=== PATIENT | female | born 1940 | race African-American/Black ===

== ENCOUNTER 2017-08-31 00:53 | Inpatient (IN) | payer MEDICARE, BC ==
[~2017-08-31] VITALS: Ht 175.3 cm; Wt 81.6 kg
[2017-08-31 04:00] VITALS: BP 136/60
[2017-08-31] MEDS ORDERED: CYMBALTA30 MG ORAL (05:23)
[2017-08-31] MEDS ORDERED: QUESTRAN POWDE378 GM ORAL (05:23)
[2017-08-31 05:48] VITALS: BP 136/60
[2017-08-31] MEDS ORDERED: Milk of Magnesia 30ml Ud ORAL PRN ×2 (07:15→09:00)
[2017-08-31] MEDS ORDERED: Miralax 17gm pkt ORAL PRN (07:15)
[2017-08-31] MEDS ORDERED: Acetaminophen 650 MG SUPP RECTAL PRN (07:15)
[2017-08-31 08:00] VITALS: BP 130/53
[2017-08-31] MEDS: Cholestyramine 4gm Pkt ORAL SCH ×3 (09:30→18:16)
[2017-08-31] MEDS: Docusate 100mg cap ORAL SCH ×2 (09:30→20:38)
[2017-08-31] MEDS ORDERED: Norco 5mg/325mg tab ORAL PRN (11:00)
[2017-08-31] MEDS ORDERED: Lactulose 20gm/30ml UDC ORAL ONE (11:30)
[2017-08-31] MEDS: Aspirin Baby 81mg ORAL SCH (11:31)
[2017-08-31] MEDS: DULoxetine 30mg cap ORAL SCH (11:31)
[2017-08-31] MEDS: Heparin 5000 units/ml inj SUBQ SCH ×2 (11:32→20:38)
--- NOTE | 2017-08-31 11:48 | Consultation ---
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 q month at [facility] Patient denied chest pain, SOB, no n/v/diarrhea/ no abdominal pain CT head in [facility] was negative for any acute IC pathology troponin was negative ECG revealed no acute ischemic chnages BP stable X ray B knee no evidence for acute bony trauma ammonia slightly elevated -51 anemic with HH-10.2/31.4 patietn was subsequently transferred to [facility] for insurance purposes Allergies: Coded Allergies: CEFAZOLIN (Verified Allergy, Intermediate, Hives, 08/31/17) CEPHALEXIN (Verified Allergy, Intermediate, Hives, 08/31/17) CEPHRADINE (Verified Allergy, Intermediate, Hives, 08/31/17) CHLOROPHYLLIN (Verified Allergy, Intermediate, Hives, 08/31/17) Medication History Scheduled Cholestyramine (With Sugar) (Questran Powder), 4 GM ORAL THREE TIMES A DAY, ( Reported) Duloxetine Hcl* (Cymbalta*), 30 MG ORAL DAILY, (Reported) Patient History History Provided By: Patient, Family Member Healthcare decision maker Resuscitation status Full Code Advanced Directive on File No Past Medical/Surgical History Past Medical/Surgical History: (1) Depression (2) Osteoarthritis (3) Carcinomatosis Review of Systems Constitutional: Reports: weakness Eye: Reports: no symptoms ENT: Reports: no symptoms Respiratory: Reports: no symptoms Cardiovascular: Reports: no symptoms Gastrointestinal: Reports: no symptoms, other - carcinomatosis, on hemo at [facility] Q MONTH Genitourinary: Reports: no symptoms Musculoskeletal: Reports: see HPI, joint pain, other - OA Skin: Reports: dryness Psychiatric: Reports: no symptoms Neurological: Reports: no symptoms Endocrine: Reports: no symptoms Hematologic/Lymphatic: Reports: no symptoms Physical Exam General Appearance: no apparent distress, alert - awake, responsive AA female Lines, tubes and drains: peripheral HEENT: normocephalic, atraumatic, anicteric, mucous membranes moist Neck: non-tender, supple, normal inspection Respiratory/Chest: chest wall non-tender, lungs clear, no respiratory distress , no accessory muscle use Cardiovascular/Chest: normal peripheral pulses, normal rate, regular rhythm - SR on tele, no JVD Abdomen: normal bowel sounds, non tender, soft Extremities: normal range of motion Skin Exam: normal pigmentation, warm/dry Neurologic: alert, responsive Last 24 Hour Vital Signs Date Time Temp Pulse Resp B/P (MAP) Pulse Ox O2 Delivery O2 Flow Rate FiO2 08/31/17 08:00 98.4 61 19 130/53 98 Room Air 08/31/17 05:48 98.4 67 18 136/60 100 Room Air 08/31/17 04:20 69 08/31/17 04:00 98.4 67 18 136/60 100 Room Air Intake and Output 08/30/17 08/31/17 19:00 07:00 Output Total 200 ml Balance -200 ml Output Urine Total 200 ml Height (Feet): 5 Height (Inches): 9.00 Weight (Pounds): 180 Medications Current Medications Medications (Trade) Dose Ordered Sig/Ginger Route PRN Reason Start Time Stop Time Status Last Admin Dose Admin Acetaminophen (Tylenol) 650 mg Q4H PRN ORAL Mild Pain (Pain 1-3)/FEVER 08/31/17 07:15 09/30/17 07:14 Acetaminophen (Tylenol) 650 mg Q4H PRN RECTAL Mild Pain (Pain Scale 1-3) 08/31/17 07:15 09/30/17 07:14 Acetaminophen/ Hydrocodone Bitart ([place] 5/325) 1 tab Q6H PRN ORAL Moderate Pain (Pain Scale 4-6) 08/31/17 11:00 09/07/17 10:59 Aspirin (ASA) 81 mg DAILY ORAL 08/31/17 09:30 09/30/17 09:29 08/31/17 11:31 Cholestyramine Resin (Questran) 4 gm THREE TIMES A DAY ORAL 08/31/17 09:30 09/30/17 09:29 Dextrose (Dextrose 50%) STAT PRN IV Hypoglycemia 08/31/17 07:15 09/30/17 07:14 Dextrose/ Electrolytes 1,000 ml @ 75 mls/hr [id number] IV 08/31/17 10:00 09/30/17 09:59 Docusate Sodium (Colace) 100 mg EVERY 12 HOURS ORAL 08/31/17 09:30 09/30/17 09:29 Duloxetine HCl (Cymbalta) 30 mg DAILY ORAL 08/31/17 09:30 09/30/17 09:29 08/31/17 11:31 Heparin Sodium (Porcine) (Heparin 5000 units/ml) 5,000 units EVERY 12 HOURS SUBQ 08/31/17 11:30 09/30/17 11:29 08/31/17 11:32 Magnesium Hydroxide (Mom) 30 ml HSPRN PRN ORAL Constipation 08/31/17 09:00 09/30/17 07:14 Ondansetron HCl (Zofran) 4 mg Q6H PRN IVP Nausea & Vomiting 08/31/17 07:15 09/30/17 07:14 Polyethylene Glycol (Miralax) 17 gm DAILYPRN PRN ORAL Constipation 08/31/17 07:15 09/30/17 07:14 Assessment/Plan Assessment/Plan ASSESSMENT s/p fall syncopal episode with transient loss of consciousness acute toxic metabolic encephalopathy -resolved 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
[2017-08-31] MEDS: D5 1/2NS w/KCl 20mEq 1,000 ML IV SCH ×2 (11:55→23:20)
[2017-08-31 12:00] VITALS: BP_SYST 121; BP_SYST 130; BP_DIAS 53; BP_DIAS 57
--- NOTE | 2017-08-31 13:31 | History & Physical ---
History and Physical History & Physicial Dictated for Int Med-Dr Rosen no. [id number]. MELODY MERCADO Aug 31, 2017 13:31
[2017-08-31 14:00] LABS: HEMATOCRIT 26.1 % (37.0-47.0); MEAN CORPUSCULAR VOLUME 98 FL (80-99); PLATELET COUNT 126 K/UL (150-450); RED BLOOD COUNT 2.67 M/UL (4.20-5.40); RED CELL DISTRIBUTION WIDTH 14.3 % (11.6-14.8); WHITE BLOOD COUNT 3.1 K/UL (4.8-10.8)
--- NOTE | 2017-08-31 14:16 | Cardiac Electrophysiology PN ---
Subjective Subjective [id number] Objective Last 24 Hour Vital Signs Date Time Temp Pulse Resp B/P (MAP) Pulse Ox O2 Delivery O2 Flow Rate FiO2 08/31/17 08:00 98.4 61 19 130/53 98 Room Air 08/31/17 08:00 74 08/31/17 05:48 98.4 67 18 136/60 100 Room Air 08/31/17 04:20 69 08/31/17 04:00 98.4 67 18 136/60 100 Room Air Intake and Output 08/30/17 08/31/17 19:00 07:00 Output Total 200 ml Balance -200 ml Output Urine Total 200 ml Laboratory Tests Test 08/31/17 13:20 White Blood Count 3.1 K/UL (4.8-10.8) L Red Blood Count 2.67 M/UL (4.20-5.40) L Hemoglobin 8.0 G/DL (12.0-16.0) L Hematocrit 26.1 % (37.0-47.0) L Mean Corpuscular Volume 98 FL (80-99) Mean Corpuscular Hemoglobin 29.9 PG (27.0-31.0) Mean Corpuscular Hemoglobin Concent 30.6 G/DL (32.0-36.0) L Red Cell Distribution Width 14.3 % (11.6-14.8) Platelet Count 126 K/UL (150-450) L Mean Platelet Volume 8.1 FL (6.5-10.1) Neutrophils (%) (Auto) % (45.0-75.0) Lymphocytes (%) (Auto) % (20.0-45.0) Monocytes (%) (Auto) % (1.0-10.0) Eosinophils (%) (Auto) % (0.0-3.0) Basophils (%) (Auto) % (0.0-2.0) Neutrophils % (Manual) Pending Lymphocytes % (Manual) Pending Platelet Estimate Pending Platelet Morphology Pending Prothrombin Time 10.9 SEC (9.30-11.50) Prothromb Time International Ratio 1.0 (0.9-1.1) Activated Partial Thromboplast Time 27 SEC (23-33) Sodium Level Pending Potassium Level Pending Chloride Level Pending Carbon Dioxide Level Pending Blood Urea Nitrogen Pending Creatinine Pending Estimat Glomerular Filtration Rate Pending Glucose Level Pending Calcium Level Pending Magnesium Level Pending Total Bilirubin Pending Aspartate Amino Transf (AST/SGOT) Pending Alanine Aminotransferase (ALT/SGPT) Pending Alkaline Phosphatase Pending Total Creatine Kinase Pending Creatine Kinase MB Pending Troponin I Pending Total Protein Pending Albumin Pending Globulin Pending Triglycerides Level Pending Cholesterol Level Pending LDL Cholesterol Pending HDL Cholesterol Pending Cholesterol/HDL Ratio Pending Thyroid Stimulating Hormone (TSH) Pending CRISTIN GIBBS Aug 31, 2017 14:16
[2017-08-31 14:30] LABS: ALANINE AMINOTRANSFERASE 32 U/L (12-78); ALBUMIN 3.1 G/DL (3.4-5.0); ALBUMIN/GLOBULIN RATIO 0.9 (1.0-2.7); ALKALINE PHOSPHATASE 51 U/L (46-116); ANION GAP 8 mmol/L (5-15); ASPARTATE AMINO TRANSFERASE 33 U/L (15-37); BILIRUBIN,TOTAL 0.7 MG/DL (0.2-1.0); BLOOD UREA NITROGEN 14 mg/dL (7-18); CALCIUM 7.6 MG/DL (8.5-10.1); CARBON DIOXIDE 27 MMOL/L (21-32); CHLORIDE 106 MMOL/L (98-107); CHOLESTEROL 142 MG/DL (< 200); CKMB 0.5 NG/ML (0.0-3.6); CREATINE KINASE 163 U/L (26-308); CREATININE 1.2 MG/DL (0.55-1.30); HDL CHOLESTEROL 74 MG/DL (40-60); POTASSIUM 3.6 MMOL/L (3.5-5.1); SODIUM 141 MMOL/L (136-145); TRIGLYCERIDES 65 MG/DL (30-150)
[2017-08-31 16:00] VITALS: BP 121/57
[2017-08-31] MEDS: Magnesium Oxide 400mg tab ORAL SCH (18:16)
[2017-08-31 20:00] VITALS: BP 127/58
[2017-08-31 20:14] LABS: APPEARANCE,URINE CLEAR; BILIRUBIN, URINE NEGATIVE (NEGATIVE); COLOR,URINE PALE YELLOW; GLUCOSE, URINE (UA) NEGATIVE (NEGATIVE); KETONES,URINE NEGATIVE (NEGATIVE); LEUKOCYTE ESTERASE ,URINE 1+ (NEGATIVE); NITRITE,URINE NEGATIVE (NEGATIVE); PH,URINE 5 (4.5-8.0); PROTEIN,URINE NEGATIVE (NEGATIVE); UROBILINOGEN,URINE NORMAL MG/DL (0.0-1.0)
--- NOTE | 2017-08-31 20:45 | History and Physical Report ---
DATE OF ADMISSION: 08/31/2017 CHIEF COMPLAINT: The patient is a 76-year-old white female, presents with complaint of syncopal episode. HISTORY OF PRESENT ILLNESS: The patient herself is somewhat confused. Much of the History and Physical is obtained from the patient's daughter, who is at the bedside. The patient states she was in her usual state of health until yesterday, 08/30/2017. The patient apparently passed out twice. The patient lives with her son and grandson. The patient had loss of consciousness for approximately five minutes. The patient was initially transported to [facility] emergency room. The patient is transferred to [facility] for insurance purposes. The patient is admitted with chief complaint of syncopal episode and altered mental status. PAST MEDICAL HISTORY: Significant for hypertension. PAST SURGICAL HISTORY: Significant for: 1. Cholecystectomy. 2. Appendectomy. CURRENT MEDICATIONS: 1. Amlodipine of an unknown dose daily. 2. Cymbalta of an unknown dose daily. ALLERGIES: 1. Cefazolin. 2. Cephalexin. 3. Cephradine. 4. Chlorophyllin. SOCIAL HISTORY: The patient is a . The patient lives with her adult son and grandson. The patient denies tobacco use, having quit in her 20s. The patient admits to occasional alcohol use. REVIEW OF SYSTEMS: CONSTITUTIONAL: The patient denies weight loss or weight gain. The patient denies fevers or chills. HEENT: The patient denies ear or throat pain. The patient denies headache. CARDIOVASCULAR: The patient denies palpitations or chest pain. CHEST: The patient denies wheeze or shortness of breath. ABDOMINAL: The patient denies nausea, vomiting, diarrhea, or constipation. GENITOURINARY: The patient denies dysuria or increased frequency of urination. NEUROMUSCULAR: The patient complains of syncopal episode as above. The patient denies seizures or generalized weakness. PHYSICAL EXAMINATION: VITAL SIGNS: Temperature 98.4, respirations 18, pulse 67, blood pressure 136/60. GENERAL: The patient is a well-developed and well-nourished white female, in no apparent distress. HEENT: Eyes, pupils equal and responsive to light and accommodation. Extraocular movements are intact. NECK: Supple without lymphadenopathy. CHEST: Lungs are clear to auscultation bilaterally without wheezes or rales. CARDIOVASCULAR: Regular rate. S1 and S2 normal without murmurs, rubs, or gallops. ABDOMEN: Soft, nontender, nondistended. Positive bowel sounds. No evidence of hepatosplenomegaly. Currently, no rebound or guarding noted. EXTREMITIES: Negative for clubbing, cyanosis, or edema. RECTAL/GENITAL: Refused. NEUROLOGIC: Cranial nerves II to XII are grossly intact without focal deficits. Motor strength is 5/5 bilaterally. Deep tendon reflexes are 2+ plantar. LABORATORY STUDIES: From [place], WBC 3.4, hemoglobin 10.2, hematocrit 31.4, and platelets 145,000. Sodium 141, potassium 4.5, chloride 107, CO2 25, BUN 13, creatinine 0.92, and glucose 113. DIAGNOSTIC DATA: EKG demonstrated sinus bradycardia at approximately 42 beats per minute. Chest x-ray was reported as no acute disease. ASSESSMENT: This is a 76-year-old white female. 1. Altered mental status. 2. Syncopal episode. 3. Bradycardia. TREATMENT: 1. Altered mental status/syncopal episode. An MRI of the brain is pending. A Neurology consultation was obtained with Dr. Nugent. Carotid Duplex Dopplers are pending. We will follow recommendations under Neurology. 2. Bradycardia. Cardiology consultation has been obtained with Dr. Seven Cedeno. The patient is admitted to the telemetry unit. Abel Noguera M.D. DR: Sarah JOB#: [id number] CC:
[2017-09-01] VITALS: BP 133/54
--- NOTE | 2017-09-01 00:30 | Consultation ---
DATE OF CONSULTATION: 08/31/2017 CARDIOLOGY CONSULTATION CONSULTING PHYSICIAN: Seven Cedeno M.D. REFERRING PHYSICIAN: Kwabena Rosen M.D. REASON FOR CONSULTATION: Syncope and bradycardia. HISTORY OF PRESENT ILLNESS: The patient is a very pleasant 76-year-old lady with history of carcinoid syndrome, was taken to [facility] Emergency Room after she had a syncopal episode. The patient actually had 2 syncopal episodes. The patient has been followed up by director of corporate sponsorships at [facility] for bradycardia. Per paramedics, the patient was awake and oriented, but then had a second syncopal episode when paramedics picked her up. The patient was then transferred to [facility] as the patient was not a [place] member. PAST MEDICAL HISTORY: 1. Carcinoid tumor. 2. Depression. 3. Anxiety. 4. . 5. Arthritis of the knee. SOCIAL HISTORY: She lives at home. Does not smoke or drink alcohol. REVIEW OF SYSTEMS: Review of systems was negative other than what was mentioned in the history of present illness. PHYSICAL EXAMINATION: VITAL SIGNS: Blood pressure of 130/53, pulse 74, respirations 18, and she is afebrile. HEAD AND NECK: No JVD. LUNGS: Clear. CARDIOVASCULAR: Regular S1 and S2 with no gallop or murmur. ABDOMEN: Soft and nontender. EXTREMITIES: No pitting edema. LABORATORY AND DIAGNOSTIC DATA: Telemetry strip shows sinus rhythm with episodes of bradycardia, the lowest one was in the 40s. Labs, white count of 3.1, hemoglobin of 8, hematocrit 26.1, and platelet count of 126,000. The rest of her labs are pending. Her chemistry from [facility] showed BUN of 13, creatinine of 0.9, glucose of 113. Troponin was negative. Alcohol level was negative. ASSESSMENT AND PLAN: 1. Two episodes of syncope in a patient with history of bradycardia. We will watch the patient on telemetry. I will check her thyroid function test. The echocardiogram actually showed ejection fraction of 60% with mild left ventricular hypertrophy with mild diastolic dysfunction. 2. If we can confirm that the cause of syncopal episodes was bradycardia, she may need permanent pacemaker implantation. In the meantime, I will keep the patient off any sinus or AV [place] blocking agents. 3. History of carcinoid syndrome, status post chemotherapy. 4. Pancytopenia, likely secondary to chemotherapeutic agent. Thank you very much, Dr. Rosen, for allowing me to participate in the care of this patient. Please do not hesitate to contact me for any questions regarding my evaluation. Seven Cedeno M.D. DR: RADHA JOB#: [id number] CC:
[2017-09-01 04:00] VITALS: BP 121/58
[2017-09-01 08:00] VITALS: BP 110/49
[2017-09-01] MEDS: Cholestyramine 4gm Pkt ORAL SCH ×3 (08:35→18:13)
[2017-09-01] MEDS: DULoxetine 30mg cap ORAL SCH (08:36)
[2017-09-01] MEDS: Docusate 100mg cap ORAL SCH ×2 (08:38→20:53)
[2017-09-01] MEDS: Aspirin Baby 81mg ORAL SCH (08:38)
[2017-09-01] MEDS: Heparin 5000 units/ml inj SUBQ SCH ×2 (08:43→20:52)
[2017-09-01] MEDS: Magnesium Oxide 400mg tab ORAL SCH ×2 (08:43→18:13)
[2017-09-01 09:19] LABS: HEMATOCRIT 24.6 % (37.0-47.0); HEMOGLOBIN 7.6 G/DL (12.0-16.0); MEAN CORPUSCULAR VOLUME 98 FL (80-99); PLATELET COUNT 112 K/UL (150-450); RED BLOOD COUNT 2.52 M/UL (4.20-5.40); RED CELL DISTRIBUTION WIDTH 13.9 % (11.6-14.8)
[2017-09-01 09:35] LABS: WHITE BLOOD COUNT 1.9 K/UL (4.8-10.8)
[2017-09-01 09:48] LABS: ANION GAP 5 mmol/L (5-15); BLOOD UREA NITROGEN 8 mg/dL (7-18); CALCIUM 7.5 MG/DL (8.5-10.1); CARBON DIOXIDE 31 MMOL/L (21-32); CHLORIDE 108 MMOL/L (98-107); CREATININE 0.9 MG/DL (0.55-1.30); POTASSIUM 3.8 MMOL/L (3.5-5.1); SODIUM 144 MMOL/L (136-145)
--- NOTE | 2017-09-01 11:22 | Neurology Progress Note ---
Objective Physical Exam Last Vital Signs Date Time Temp Pulse Resp B/P (MAP) Pulse Ox O2 Delivery O2 Flow Rate FiO2 09/01/17 09:10 98 09/01/17 08:00 97.4 18 110/49 97 Room Air Laboratory Tests Test 08/31/17 13:20 08/31/17 19:00 09/01/17 07:07 09/01/17 07:15 White Blood Count 3.1 K/UL (4.8-10.8) L 1.9 K/UL (4.8-10.8) *L Red Blood Count 2.67 M/UL (4.20-5.40) L 2.52 M/UL (4.20-5.40) L Hemoglobin 8.0 G/DL (12.0-16.0) L 7.6 G/DL (12.0-16.0) L Hematocrit 26.1 % (37.0-47.0) L 24.6 % (37.0-47.0) L Mean Corpuscular Volume 98 FL (80-99) 98 FL (80-99) Mean Corpuscular Hemoglobin 29.9 PG (27.0-31.0) 30.2 PG (27.0-31.0) Mean Corpuscular Hemoglobin Concent 30.6 G/DL (32.0-36.0) L 30.9 G/DL (32.0-36.0) L Red Cell Distribution Width 14.3 % (11.6-14.8) 13.9 % (11.6-14.8) Platelet Count 126 K/UL (150-450) L 112 K/UL (150-450) L Mean Platelet Volume 8.1 FL (6.5-10.1) 8.6 FL (6.5-10.1) Neutrophils (%) (Auto) % (45.0-75.0) % (45.0-75.0) Lymphocytes (%) (Auto) % (20.0-45.0) % (20.0-45.0) Monocytes (%) (Auto) % (1.0-10.0) % (1.0-10.0) Eosinophils (%) (Auto) % (0.0-3.0) % (0.0-3.0) Basophils (%) (Auto) % (0.0-2.0) % (0.0-2.0) Differential Total Cells Counted 100 100 Neutrophils % (Manual) 80 % (45-75) H 63 % (45-75) Lymphocytes % (Manual) 9 % (20-45) L 23 % (20-45) Monocytes % (Manual) 10 % (1-10) 10 % (1-10) Eosinophils % (Manual) 1 % (0-3) 4 % (0-3) H Basophils % (Manual) 0 % (0-2) 0 % (0-2) Band Neutrophils 0 % (0-8) 0 % (0-8) Platelet Estimate Decreased L Decreased L Platelet Morphology Normal Normal Hypochromasia 2+ 1+ Anisocytosis 1+ Prothrombin Time 10.9 SEC (9.30-11.50) Prothromb Time International Ratio 1.0 (0.9-1.1) Activated Partial Thromboplast Time 27 SEC (23-33) Sodium Level 141 MMOL/L (136-145) 144 MMOL/L (136-145) Potassium Level 3.6 MMOL/L (3.5-5.1) 3.8 MMOL/L (3.5-5.1) Chloride Level 106 MMOL/L (98-107) 108 MMOL/L (98-107) H Carbon Dioxide Level 27 MMOL/L (21-32) 31 MMOL/L (21-32) Anion Gap 8 mmol/L (5-15) 5 mmol/L (5-15) Blood Urea Nitrogen 14 mg/dL (7-18) 8 mg/dL (7-18) Creatinine 1.2 MG/DL (0.55-1.30) 0.9 MG/DL (0.55-1.30) Estimat Glomerular Filtration Rate mL/min (>60) mL/min (>60) Glucose Level 170 MG/DL (74-106) H 110 MG/DL (74-106) H Calcium Level 7.6 MG/DL (8.5-10.1) L 7.5 MG/DL (8.5-10.1) L Magnesium Level 1.5 MG/DL (1.8-2.4) L Total Bilirubin 0.7 MG/DL (0.2-1.0) Aspartate Amino Transf (AST/SGOT) 33 U/L (15-37) Alanine Aminotransferase (ALT/SGPT) 32 U/L (12-78) Alkaline Phosphatase 51 U/L (46-116) Total Creatine Kinase 163 U/L (26-308) Creatine Kinase MB 0.5 NG/ML (0.0-3.6) Creatine Kinase MB Relative Index 0.3 Troponin I 0.038 ng/mL (0.000-0.056) 0.040 ng/mL (0.000-0.056) 0.030 ng/mL (0.000-0.056) Total Protein 6.4 G/DL (6.4-8.2) Albumin 3.1 G/DL (3.4-5.0) L Globulin 3.3 g/dL Albumin/Globulin Ratio 0.9 (1.0-2.7) L Triglycerides Level 65 MG/DL (30-150) Cholesterol Level 142 MG/DL (< 200) LDL Cholesterol 66 mg/dL (<100) HDL Cholesterol 74 MG/DL (40-60) H Cholesterol/HDL Ratio 1.9 (3.3-4.4) L Thyroid Stimulating Hormone (TSH) 0.433 uiU/mL (0.358-3.740) 1.047 uiU/mL (0.358-3.740) Urine Color Pale yellow Urine Appearance Clear Urine pH 5 (4.5-8.0) Urine Specific [place] 1.005 (1.005-1.035) Urine Protein Negative (NEGATIVE) Urine Glucose (UA) Negative (NEGATIVE) Urine Ketones Negative (NEGATIVE) Urine Occult Blood 2+ (NEGATIVE) H Urine Nitrite Negative (NEGATIVE) Urine Bilirubin Negative (NEGATIVE) Urine Urobilinogen Normal MG/DL (0.0-1.0) Urine Leukocyte Esterase 1+ (NEGATIVE) H Urine RBC 0-2 /HPF (0 - 2) Urine WBC 0-2 /HPF (0 - 2) Urine Squamous Epithelial Cells Occasional /LPF Urine Bacteria Occasional /HPF (NONE) Ammonia 18 umol/L (11-32) Free Thyroxine 0.90 NG/DL (0.76-1.46) Impression/Recommendations Problems: (1) recurrent amnestic episodes (2) TGA (transient global amnesia) (3) Pancytopenia due to chemotherapy (4) Depression (5) Carcinomatosis Status: unchanged Recommendations #[id number] CONSTANCE STOLL Sep 01, 2017 11:22
[2017-09-01 12:00] VITALS: BP 139/61
[2017-09-01] MEDS: D5 1/2NS w/KCl 20mEq 1,000 ML IV SCH (12:40)
--- NOTE | 2017-09-01 12:53 | Internal Med Progress Note ---
Subjective Date of Service: Sep 01, 2017 Physician Name Abel Mercado Attending Physician Kwabena Rosen MD Current Medications Medications (Trade) Dose Ordered Sig/Ginger Route PRN Reason Start Time Stop Time Status Last Admin Dose Admin Acetaminophen (Tylenol) 650 mg Q4H PRN ORAL Mild Pain (Pain 1-3)/FEVER 08/31/17 07:15 09/30/17 07:14 Acetaminophen (Tylenol) 650 mg Q4H PRN RECTAL Mild Pain (Pain Scale 1-3) 08/31/17 07:15 09/30/17 07:14 Acetaminophen/ Hydrocodone Bitart ([place] 5/325) 1 tab Q6H PRN ORAL Moderate Pain (Pain Scale 4-6) 08/31/17 11:00 09/07/17 10:59 Aspirin (ASA) 81 mg DAILY ORAL 08/31/17 09:30 09/30/17 09:29 09/01/17 08:38 Cholestyramine Resin (Questran) 4 gm THREE TIMES A DAY ORAL 08/31/17 09:30 09/30/17 09:29 09/01/17 08:35 Dextrose (Dextrose 50%) STAT PRN IV Hypoglycemia 08/31/17 07:15 09/30/17 07:14 Dextrose/ Electrolytes 1,000 ml @ 75 mls/hr [id number] IV 08/31/17 10:00 09/30/17 09:59 08/31/17 11:55 Docusate Sodium (Colace) 100 mg EVERY 12 HOURS ORAL 08/31/17 09:30 09/30/17 09:29 Duloxetine HCl (Cymbalta) 30 mg DAILY ORAL 08/31/17 09:30 09/30/17 09:29 09/01/17 08:36 Famotidine (Pepcid) 20 mg DAILY ORAL 09/01/17 09:00 10/01/17 08:59 09/01/17 08:40 Heparin Sodium (Porcine) (Heparin 5000 units/ml) 5,000 units EVERY 12 HOURS SUBQ 08/31/17 11:30 09/30/17 11:29 08/31/17 20:38 Magnesium Hydroxide (Mom) 30 ml HSPRN PRN ORAL Constipation 08/31/17 09:00 09/30/17 07:14 Magnesium Oxide (Mag-Ox 400mg) 400 mg BID ORAL 08/31/17 18:00 09/30/17 17:59 09/01/17 08:43 Ondansetron HCl (Zofran) 4 mg Q6H PRN IVP Nausea & Vomiting 08/31/17 07:15 09/30/17 07:14 Polyethylene Glycol (Miralax) 17 gm DAILYPRN PRN ORAL Constipation 08/31/17 07:15 09/30/17 07:14 Allergies: Coded Allergies: CEFAZOLIN (Verified Allergy, Intermediate, Hives, 08/31/17) CEPHALEXIN (Verified Allergy, Intermediate, Hives, 08/31/17) CEPHRADINE (Verified Allergy, Intermediate, Hives, 08/31/17) CHLOROPHYLLIN (Verified Allergy, Intermediate, Hives, 08/31/17) ROS Limited/Unobtainable: No Constitutional: Reports: no symptoms HEENT: Reports: no symptoms Cardiovascular: Reports: no symptoms Respiratory: Reports: no symptoms Gastrointestinal/Abdominal: Reports: no symptoms Genitourinary: Reports: no symptoms Neurologic/Psychiatric: Reports: no symptoms Subjective 76 YO F admitted with recurrent amnestic episodes. Cover for Int Med-Dr Rosen. Objective Last Vital Signs Date Time Temp Pulse Resp B/P (MAP) Pulse Ox O2 Delivery O2 Flow Rate FiO2 09/01/17 09:10 98 09/01/17 08:00 97.4 18 110/49 97 Room Air General Appearance: WD/WN, no apparent distress, alert EENT: PERRL/EOMI, normal ENT inspection, TMs normal Neck: non-tender, normal alignment, supple, normal inspection Cardiovascular: normal peripheral pulses, normal rate, regular rhythm, no gallop/murmur, no JVD Respiratory/Chest: chest wall non-tender, lungs clear, normal breath sounds, no respiratory distress, no accessory muscle use Abdomen: normal bowel sounds, non tender, soft, no organomegaly, no mass Extremities: normal range of motion 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, no motor/sensory deficits Laboratory Tests Test 08/31/17 13:20 08/31/17 19:00 09/01/17 07:07 09/01/17 07:15 White Blood Count 3.1 K/UL (4.8-10.8) L 1.9 K/UL (4.8-10.8) *L Red Blood Count 2.67 M/UL (4.20-5.40) L 2.52 M/UL (4.20-5.40) L Hemoglobin 8.0 G/DL (12.0-16.0) L 7.6 G/DL (12.0-16.0) L Hematocrit 26.1 % (37.0-47.0) L 24.6 % (37.0-47.0) L Mean Corpuscular Volume 98 FL (80-99) 98 FL (80-99) Mean Corpuscular Hemoglobin 29.9 PG (27.0-31.0) 30.2 PG (27.0-31.0) Mean Corpuscular Hemoglobin Concent 30.6 G/DL (32.0-36.0) L 30.9 G/DL (32.0-36.0) L Red Cell Distribution Width 14.3 % (11.6-14.8) 13.9 % (11.6-14.8) Platelet Count 126 K/UL (150-450) L 112 K/UL (150-450) L Mean Platelet Volume 8.1 FL (6.5-10.1) 8.6 FL (6.5-10.1) Neutrophils (%) (Auto) % (45.0-75.0) % (45.0-75.0) Lymphocytes (%) (Auto) % (20.0-45.0) % (20.0-45.0) Monocytes (%) (Auto) % (1.0-10.0) % (1.0-10.0) Eosinophils (%) (Auto) % (0.0-3.0) % (0.0-3.0) Basophils (%) (Auto) % (0.0-2.0) % (0.0-2.0) Differential Total Cells Counted 100 100 Neutrophils % (Manual) 80 % (45-75) H 63 % (45-75) Lymphocytes % (Manual) 9 % (20-45) L 23 % (20-45) Monocytes % (Manual) 10 % (1-10) 10 % (1-10) Eosinophils % (Manual) 1 % (0-3) 4 % (0-3) H Basophils % (Manual) 0 % (0-2) 0 % (0-2) Band Neutrophils 0 % (0-8) 0 % (0-8) Platelet Estimate Decreased L Decreased L Platelet Morphology Normal Normal Hypochromasia 2+ 1+ Anisocytosis 1+ Prothrombin Time 10.9 SEC (9.30-11.50) Prothromb Time International Ratio 1.0 (0.9-1.1) Activated Partial Thromboplast Time 27 SEC (23-33) Sodium Level 141 MMOL/L (136-145) 144 MMOL/L (136-145) Potassium Level 3.6 MMOL/L (3.5-5.1) 3.8 MMOL/L (3.5-5.1) Chloride Level 106 MMOL/L (98-107) 108 MMOL/L (98-107) H Carbon Dioxide Level 27 MMOL/L (21-32) 31 MMOL/L (21-32) Anion Gap 8 mmol/L (5-15) 5 mmol/L (5-15) Blood Urea Nitrogen 14 mg/dL (7-18) 8 mg/dL (7-18) Creatinine 1.2 MG/DL (0.55-1.30) 0.9 MG/DL (0.55-1.30) Estimat Glomerular Filtration Rate mL/min (>60) mL/min (>60) Glucose Level 170 MG/DL (74-106) H 110 MG/DL (74-106) H Calcium Level 7.6 MG/DL (8.5-10.1) L 7.5 MG/DL (8.5-10.1) L Magnesium Level 1.5 MG/DL (1.8-2.4) L Total Bilirubin 0.7 MG/DL (0.2-1.0) Aspartate Amino Transf (AST/SGOT) 33 U/L (15-37) Alanine Aminotransferase (ALT/SGPT) 32 U/L (12-78) Alkaline Phosphatase 51 U/L (46-116) Total Creatine Kinase 163 U/L (26-308) Creatine Kinase MB 0.5 NG/ML (0.0-3.6) Creatine Kinase MB Relative Index 0.3 Troponin I 0.038 ng/mL (0.000-0.056) 0.040 ng/mL (0.000-0.056) 0.030 ng/mL (0.000-0.056) Total Protein 6.4 G/DL (6.4-8.2) Albumin 3.1 G/DL (3.4-5.0) L Globulin 3.3 g/dL Albumin/Globulin Ratio 0.9 (1.0-2.7) L Triglycerides Level 65 MG/DL (30-150) Cholesterol Level 142 MG/DL (< 200) LDL Cholesterol 66 mg/dL (<100) HDL Cholesterol 74 MG/DL (40-60) H Cholesterol/HDL Ratio 1.9 (3.3-4.4) L Thyroid Stimulating Hormone (TSH) 0.433 uiU/mL (0.358-3.740) 1.047 uiU/mL (0.358-3.740) Urine Color Pale yellow Urine Appearance Clear Urine pH 5 (4.5-8.0) Urine Specific [place] 1.005 (1.005-1.035) Urine Protein Negative (NEGATIVE) Urine Glucose (UA) Negative (NEGATIVE) Urine Ketones Negative (NEGATIVE) Urine Occult Blood 2+ (NEGATIVE) H Urine Nitrite Negative (NEGATIVE) Urine Bilirubin Negative (NEGATIVE) Urine Urobilinogen Normal MG/DL (0.0-1.0) Urine Leukocyte Esterase 1+ (NEGATIVE) H Urine RBC 0-2 /HPF (0 - 2) Urine WBC 0-2 /HPF (0 - 2) Urine Squamous Epithelial Cells Occasional /LPF Urine Bacteria Occasional /HPF (NONE) Ammonia 18 umol/L (11-32) Free Thyroxine 0.90 NG/DL (0.76-1.46) Intake and Output 08/31/17 09/01/17 19:00 07:00 Intake Total 997 ml 436 ml Balance 997 ml 436 ml Intake Oral 472 ml 436 ml IV Total 525 ml # Voids 2 # Bowel Movements 1 2 Assessment/Plan Problem List: (1) Hypercholesterolemia Assessment & Plan: Cont Questran (2) Carcinomatosis Assessment & Plan: Liver. Followed at [facility] (3) Syncope (4) Bradycardia Assessment & Plan: See cardiology note. (5) recurrent amnestic episodes (6) TGA (transient global amnesia) Assessment & Plan: See neurology note. Await MRI brain. (7) Pancytopenia due to chemotherapy (8) Depression Status: progressing ABEL MERCADO Sep 01, 2017 12:53
[2017-09-01 14:16] LABS: HEMATOCRIT 27.6 % (37.0-47.0); HEMOGLOBIN 8.5 G/DL (12.0-16.0); MEAN CORPUSCULAR VOLUME 99 FL (80-99); PLATELET COUNT 130 K/UL (150-450); RED BLOOD COUNT 2.79 M/UL (4.20-5.40); RED CELL DISTRIBUTION WIDTH 14.1 % (11.6-14.8); WHITE BLOOD COUNT 2.6 K/UL (4.8-10.8)
--- NOTE | 2017-09-01 14:49 | Pulmonology Progress Note ---
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 ( on chemo) pancytopenia bradycardia bilateral knee sprain hypo Mg PLAN OF CARE tele cardio and neuro follows CT head negative at [place] Carotid US MRI brain EEG ECHO with pEF 60% and RVSP of 44 c/w mild pulmonary HTN orthostatic VS+ this am with drop over 20 from laying to standing position continue IVF ammonia was elevated , s/p Lactulose x 1, ammonia down to normal this am heme eval for pancytopenia, likely due to chemo repeated CBC later with improved WBC and HH syncope likely due to combination of dehydration ( evident by + orthostatic hypotension) and bradycardia (cardio follows) serial troponin negative pain management X ray B knee no acute bony trauma DVT GI prophylaxis bowel regimen PT eval and Rx replace Mg case discussed and evaluated by supervising physician Subjective Allergies: Coded Allergies: CEFAZOLIN (Verified Allergy, Intermediate, Hives, 08/31/17) CEPHALEXIN (Verified Allergy, Intermediate, Hives, 08/31/17) CEPHRADINE (Verified Allergy, Intermediate, Hives, 08/31/17) CHLOROPHYLLIN (Verified Allergy, Intermediate, Hives, 08/31/17) Subjective no chest pain, no SOB + lightheadedness when standing up severe leukopenia and anemia Objective Last 24 Hour Vital Signs Date Time Temp Pulse Resp B/P (MAP) Pulse Ox O2 Delivery O2 Flow Rate FiO2 09/01/17 12:00 97.4 60 19 139/61 98 Room Air 09/01/17 12:00 46 09/01/17 09:10 98 09/01/17 09:05 68 09/01/17 09:00 62 09/01/17 08:00 97.4 60 18 110/49 97 Room Air 09/01/17 08:00 56 09/01/17 04:56 55 75 98 09/01/17 04:00 97.9 55 19 121/58 98 Room Air 55 09/01/17 04:00 56 09/01/17 00:00 98.8 60 20 133/54 98 Room Air 60 09/01/17 00:00 59 08/31/17 20:00 97.3 53 20 127/58 100 Room Air 08/31/17 20:00 55 08/31/17 16:00 98.2 55 18 121/57 99 Room Air 08/31/17 16:00 54 Intake and Output 08/31/17 09/01/17 19:00 07:00 Intake Total 997 ml 436 ml Balance 997 ml 436 ml Intake Oral 472 ml 436 ml IV Total 525 ml # Voids 2 # Bowel Movements 1 2 Objective General Appearance: no apparent distress, alert - awake, responsive AA female Lines, tubes and drains: peripheral HEENT: normocephalic, atraumatic, anicteric, mucous membranes moist Neck: non-tender, supple, normal inspection Respiratory/Chest: chest wall non-tender, lungs clear, no respiratory distress , no accessory muscle use Cardiovascular/Chest: normal peripheral pulses, normal rate, regular rhythm - SR on tele, no JVD Abdomen: normal bowel sounds, non tender, soft Extremities: normal range of motion Skin Exam: normal pigmentation, warm/dry Neurologic: alert, responsive Laboratory Tests 08/31/17 19:00: Urine Color Pale yellow, Urine Appearance Clear, Urine pH 5, Urine Specific [place] 1.005, Urine Protein Negative, Urine Glucose (UA) Negative, Urine Ketones Negative, Urine Occult Blood 2+H, Urine Nitrite Negative, Urine Bilirubin Negative, Urine Urobilinogen Normal, Urine Leukocyte Esterase 1+H, Urine RBC 0-2, Urine WBC 0-2, Urine Squamous Epithelial Cells Occasional, Urine Bacteria Occasional 09/01/17 07:07: Troponin I 0.040 09/01/17 07:15: Troponin I 0.030, White Blood Count 1.9*L, Red Blood Count 2.52L, Hemoglobin 7.6L, Hematocrit 24.6L, Mean Corpuscular Volume 98, Mean Corpuscular Hemoglobin 30.2, Mean Corpuscular Hemoglobin Concent 30.9L, Red Cell Distribution Width 13.9, Platelet Count 112L, Mean Platelet Volume 8.6, Neutrophils (%) (Auto) , Lymphocytes (%) (Auto) , Monocytes (%) (Auto) , Eosinophils (%) (Auto) , Basophils (%) (Auto) , Differential Total Cells Counted 100, Neutrophils % ( Manual) 63, Lymphocytes % (Manual) 23, Monocytes % (Manual) 10, Eosinophils % ( Manual) 4H, Basophils % (Manual) 0, Band Neutrophils 0, Platelet Estimate DecreasedL, Platelet Morphology Normal, Hypochromasia 1+, Sodium Level 144, Potassium Level 3.8, Chloride Level 108H, Carbon Dioxide Level 31, Anion Gap 5, Blood Urea Nitrogen 8, Creatinine 0.9, Estimat Glomerular Filtration Rate , Glucose Level 110H, Calcium Level 7.5L, Ammonia 18, Thyroid Stimulating Hormone (TSH) 1.047, Free Thyroxine 0.90 09/01/17 13:55: White Blood Count 2.6L, Red Blood Count 2.79L, Hemoglobin 8.5L, Hematocrit 27.6L , Mean Corpuscular Volume 99, Mean Corpuscular Hemoglobin 30.5, Mean Corpuscular Hemoglobin Concent 30.8L, Red Cell Distribution Width 14.1, Platelet Count 130L, Mean Platelet Volume 8.3, Neutrophils (%) (Auto) , Lymphocytes (%) (Auto) , Monocytes (%) (Auto) , Eosinophils (%) (Auto) , Basophils (%) (Auto) , Differential Total Cells Counted 100, Neutrophils % ( Manual) 78H, Lymphocytes % (Manual) 10L, Monocytes % (Manual) 11H, Eosinophils % (Manual) 1, Basophils % (Manual) 0, Band Neutrophils 0, Platelet Estimate DecreasedL, Platelet Morphology Normal, Hypochromasia 1+ Current Medications Medications (Trade) Dose Ordered Sig/Ginger Route PRN Reason Start Time Stop Time Status Last Admin Dose Admin Acetaminophen (Tylenol) 650 mg Q4H PRN ORAL Mild Pain (Pain 1-3)/FEVER 08/31/17 07:15 09/30/17 07:14 Acetaminophen (Tylenol) 650 mg Q4H PRN RECTAL Mild Pain (Pain Scale 1-3) 08/31/17 07:15 09/30/17 07:14 Acetaminophen/ Hydrocodone Bitart ([place] 5/325) 1 tab Q6H PRN ORAL Moderate Pain (Pain Scale 4-6) 08/31/17 11:00 09/07/17 10:59 Aspirin (ASA) 81 mg DAILY ORAL 08/31/17 09:30 09/30/17 09:29 09/01/17 08:38 Cholestyramine Resin (Questran) 4 gm THREE TIMES A DAY ORAL 08/31/17 09:30 09/30/17 09:29 09/01/17 13:08 Dextrose (Dextrose 50%) STAT PRN IV Hypoglycemia 08/31/17 07:15 09/30/17 07:14 Dextrose/ Electrolytes 1,000 ml @ 75 mls/hr [id number] IV 08/31/17 10:00 09/30/17 09:59 08/31/17 11:55 Docusate Sodium (Colace) 100 mg EVERY 12 HOURS ORAL 08/31/17 09:30 09/30/17 09:29 Duloxetine HCl (Cymbalta) 30 mg DAILY ORAL 08/31/17 09:30 09/30/17 09:29 09/01/17 08:36 Famotidine (Pepcid) 20 mg DAILY ORAL 09/01/17 09:00 10/01/17 08:59 09/01/17 08:40 Heparin Sodium (Porcine) (Heparin 5000 units/ml) 5,000 units EVERY 12 HOURS SUBQ 08/31/17 11:30 09/30/17 11:29 08/31/17 20:38 Magnesium Hydroxide (Mom) 30 ml HSPRN PRN ORAL Constipation 08/31/17 09:00 09/30/17 07:14 Magnesium Oxide (Mag-Ox 400mg) 400 mg BID ORAL 08/31/17 18:00 09/30/17 17:59 09/01/17 08:43 Ondansetron HCl (Zofran) 4 mg Q6H PRN IVP Nausea & Vomiting 08/31/17 07:15 09/30/17 07:14 Polyethylene Glycol (Miralax) 17 gm DAILYPRN PRN ORAL Constipation 08/31/17 07:15 09/30/17 07:14 [facility] CenterAisha Ramos NP Sep 01, 2017 14:49
--- NOTE | 2017-09-01 15:33 | Cardiac Electrophysiology PN ---
Assessment/Plan Assessment/Plan 1. Two episodes of syncope in a patient with history of bradycardia. No sig arrhythmias on tele except occasional kelley in Sinus kelley 45. The echocardiogram actually showed ejection fraction of 60% with mild left ventricular hypertrophy with mild diastolic dysfunction. I will keep the patient off any sinus or AV [place] blocking agents. 2. History of carcinoid syndrome, status post chemotherapy. 3. Pancytopenia, likely secondary to chemotherapeutic agent. DW Daughter and gambling monitor Subjective Subjective Feeling better. Daughter at bedside. No chest pain Objective Last 24 Hour Vital Signs Date Time Temp Pulse Resp B/P (MAP) Pulse Ox O2 Delivery O2 Flow Rate FiO2 09/01/17 12:00 97.4 60 19 139/61 98 Room Air 09/01/17 12:00 46 09/01/17 09:10 98 09/01/17 09:05 68 09/01/17 09:00 62 09/01/17 08:00 97.4 60 18 110/49 97 Room Air 09/01/17 08:00 56 09/01/17 04:56 55 75 98 09/01/17 04:00 97.9 55 19 121/58 98 Room Air 55 09/01/17 04:00 56 09/01/17 00:00 98.8 60 20 133/54 98 Room Air 60 09/01/17 00:00 59 08/31/17 20:00 97.3 53 20 127/58 100 Room Air 08/31/17 20:00 55 08/31/17 16:00 98.2 55 18 121/57 99 Room Air 08/31/17 16:00 54 Intake and Output 08/31/17 09/01/17 19:00 07:00 Intake Total 997 ml 436 ml Balance 997 ml 436 ml Intake Oral 472 ml 436 ml IV Total 525 ml # Voids 2 # Bowel Movements 1 2 Laboratory Tests Test 08/31/17 19:00 09/01/17 07:07 09/01/17 07:15 09/01/17 13:55 Urine Color Pale yellow Urine Appearance Clear Urine pH 5 (4.5-8.0) Urine Specific [place] 1.005 (1.005-1.035) Urine Protein Negative (NEGATIVE) Urine Glucose (UA) Negative (NEGATIVE) Urine Ketones Negative (NEGATIVE) Urine Occult Blood 2+ (NEGATIVE) H Urine Nitrite Negative (NEGATIVE) Urine Bilirubin Negative (NEGATIVE) Urine Urobilinogen Normal MG/DL (0.0-1.0) Urine Leukocyte Esterase 1+ (NEGATIVE) H Urine RBC 0-2 /HPF (0 - 2) Urine WBC 0-2 /HPF (0 - 2) Urine Squamous Epithelial Cells Occasional /LPF Urine Bacteria Occasional /HPF (NONE) Troponin I 0.040 ng/mL (0.000-0.056) 0.030 ng/mL (0.000-0.056) White Blood Count 1.9 K/UL (4.8-10.8) *L 2.6 K/UL (4.8-10.8) L Red Blood Count 2.52 M/UL (4.20-5.40) L 2.79 M/UL (4.20-5.40) L Hemoglobin 7.6 G/DL (12.0-16.0) L 8.5 G/DL (12.0-16.0) L Hematocrit 24.6 % (37.0-47.0) L 27.6 % (37.0-47.0) L Mean Corpuscular Volume 98 FL (80-99) 99 FL (80-99) Mean Corpuscular Hemoglobin 30.2 PG (27.0-31.0) 30.5 PG (27.0-31.0) Mean Corpuscular Hemoglobin Concent 30.9 G/DL (32.0-36.0) L 30.8 G/DL (32.0-36.0) L Red Cell Distribution Width 13.9 % (11.6-14.8) 14.1 % (11.6-14.8) Platelet Count 112 K/UL (150-450) L 130 K/UL (150-450) L Mean Platelet Volume 8.6 FL (6.5-10.1) 8.3 FL (6.5-10.1) Neutrophils (%) (Auto) % (45.0-75.0) % (45.0-75.0) Lymphocytes (%) (Auto) % (20.0-45.0) % (20.0-45.0) Monocytes (%) (Auto) % (1.0-10.0) % (1.0-10.0) Eosinophils (%) (Auto) % (0.0-3.0) % (0.0-3.0) Basophils (%) (Auto) % (0.0-2.0) % (0.0-2.0) Differential Total Cells Counted 100 100 Neutrophils % (Manual) 63 % (45-75) 78 % (45-75) H Lymphocytes % (Manual) 23 % (20-45) 10 % (20-45) L Monocytes % (Manual) 10 % (1-10) 11 % (1-10) H Eosinophils % (Manual) 4 % (0-3) H 1 % (0-3) Basophils % (Manual) 0 % (0-2) 0 % (0-2) Band Neutrophils 0 % (0-8) 0 % (0-8) Platelet Estimate Decreased L Decreased L Platelet Morphology Normal Normal Hypochromasia 1+ 1+ Sodium Level 144 MMOL/L (136-145) Potassium Level 3.8 MMOL/L (3.5-5.1) Chloride Level 108 MMOL/L (98-107) H Carbon Dioxide Level 31 MMOL/L (21-32) Anion Gap 5 mmol/L (5-15) Blood Urea Nitrogen 8 mg/dL (7-18) Creatinine 0.9 MG/DL (0.55-1.30) Estimat Glomerular Filtration Rate mL/min (>60) Glucose Level 110 MG/DL (74-106) H Calcium Level 7.5 MG/DL (8.5-10.1) L Ammonia 18 umol/L (11-32) Thyroid Stimulating Hormone (TSH) 1.047 uiU/mL (0.358-3.740) Free Thyroxine 0.90 NG/DL (0.76-1.46) Objective HEAD AND NECK: No JVD. LUNGS: Clear. CARDIOVASCULAR: Regular S1 and S2 with no gallop or murmur. ABDOMEN: Soft and nontender. EXTREMITIES: No pitting edema. CRISTIN GIBBS Sep 01, 2017 15:33
[2017-09-01 16:00] VITALS: BP 128/59
[2017-09-01 20:00] VITALS: BP 125/48
[2017-09-02] VITALS: BP 152/81
[2017-09-02] MEDS: D5 1/2NS w/KCl 20mEq 1,000 ML IV SCH (02:00)
[2017-09-02 04:00] VITALS: BP 113/51
[2017-09-02 07:41] LABS: HEMATOCRIT 25.2 % (37.0-47.0); HEMOGLOBIN 7.9 G/DL (12.0-16.0); MEAN CORPUSCULAR VOLUME 99 FL (80-99); PLATELET COUNT 109 K/UL (150-450); RED BLOOD COUNT 2.55 M/UL (4.20-5.40); RED CELL DISTRIBUTION WIDTH 14.1 % (11.6-14.8)
[2017-09-02 07:44] LABS: ANION GAP 6 mmol/L (5-15); BLOOD UREA NITROGEN 13 mg/dL (7-18); CALCIUM 7.5 MG/DL (8.5-10.1); CARBON DIOXIDE 31 MMOL/L (21-32); CHLORIDE 110 MMOL/L (98-107); POTASSIUM 4.4 MMOL/L (3.5-5.1); SODIUM 146 MMOL/L (136-145)
[2017-09-02 07:45] LABS: WHITE BLOOD COUNT 2.1 K/UL (4.8-10.8)
[2017-09-02 08:00] VITALS: BP 110/53
--- NOTE | 2017-09-02 08:30 | Consultation ---
DATE OF CONSULTATION: 09/01/2017 NEUROLOGICAL CONSULTATION REQUESTING PHYSICIAN: Kwabena Rosen M.D. HISTORY OF PRESENT ILLNESS: This is a 76-year-old female seen in neurological consultation to evaluate recurrent episodes of changes in mental status. According to the patient, she has vague recollection of yesterday morning, then she has no recollection until she came to this facility this morning. According to her daughter, yesterday she received a text message from her mother indicating that she fell down, this occurred around noon time. She came and found her lying on the bed, being very confused, asking "where am I", complaining of pain in her knees and ankle. At that point, the daughter decided to take her to emergency room. She helped her out to get up and walked slowly to her car, but she could not climb up the car, so she sat down next to the car 01:52 on the ground, being awake, but very confused. Few minutes later, daughter came back and found her lying on the ground, not talking, body was very stiff, but she had open eyes and was aware of her daughter presence. She was getting dressed and changed, approximately one hour past, at that point, paramedics were called to the scene. She described her confused as disoriented. With this, she was brought to [facility] where she was described already oriented x3. According to the daughter, though she continued to be confused through the day while being assessed at the [facility] emergency room where CAT scan of the brain was obtained and reported as negative. Her vital signs remained stable. She was afebrile. Laboratory work was obtained revealed mild anemia and elevation of ammonia at 51. Due to absence of place at [facility], she was brought to this facility for further assessment and treatment. Upon arrival this morning, her vital signs described as normal, blood pressure 136/60 and temperature 98.4. Laboratory work was obtained revealing mild anemia with WBC 3.1, hemoglobin 8.2, and hematocrit 26.1. Repeat study though revealed WBC down to 1.9, hemoglobin 7.3, hematocrit 24.6, and platelet count 112. Chemistry panel with blood sugar 170, low calcium 7.6. Magnesium 1.5. Albumin 3.1. Normal lipid panel. Her urinalysis was unremarkable except 1+ leukocyte esterase and her coagulation panel was normal. Since admission till present, there was no further paroxysmal event. Her daughter noticed that after she was given lactulose, she woke up completely and was back to her baseline. Daughter informs me that she had a quite similar identical episodes this summer lasting for one to two hours. She was taken to [facility]. On one occasion she was taken to [facility] emergency room where workup was negative and then she had another hospitalization to [facility] where she was seen at [facility]. She had EEG studies and some other diagnostic studies, which were reported to the family as normal. There was no evidence of ongoing seizure activities. No evidence of strokes. Appears that no final diagnosis was made. Family was explained that it may be that she suffered from dehydration. The patient had a total of three such episodes during six months period of time. 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 Following current admission, she is maintaining on the same treatment adding aspirin and Tylenol as needed, 08:03 supplement of magnesium, 08:08 p.r.n. FAMILY HISTORY: Noncontributory. SOCIAL HISTORY: Lives with her nephew, takes care of her house, driving car as necessary. No alcohol. No drug abuse. Nonsmoker. FAMILY HISTORY: Noncontributory. REVIEW OF SYSTEMS: At this time, the patient's main concern is sprained ankle pain and both knee pain. She denies headache or dizziness. No chest pain. No palpitations. No respiratory problems. Denies abdominal pain or discomfort. No urine or bowel incontinence. PHYSICAL EXAMINATION: GENERAL: Well developed, somewhat cachectic appearing pleasant lady, not in acute distress. VITAL SIGNS: Stable, blood pressure is 130/63 and temperature 98.4. HEENT: Head, normocephalic. No evidence of trauma. Eyes, ears, and throat are clear. NECK: Supple. No meningeal signs. MUSCULOSKELETAL: Unremarkable with no deformities. There is palpable tenderness in both knees and ankles. Peripheral pulses 1+ symmetric. MENTAL STATUS: She is alert and oriented x3 with no evidence of aphasia or apraxia. Cognitive function normal except recurrent amnestic episodes. CRANIAL NERVE II: Pupils both responding to light and accommodation. Extraocular movement intact. No nystagmus. CRANIAL NERVE V: Normal corneal responses. CRANIAL NERVE VII: No facial asymmetry. CRANIAL NERVE VIII: Normal hearing. CRANIAL NERVE IX THROUGH XII: With normal limits. MOTOR EXAMINATION: Normal muscle tone and strength 5/5 in all extremities. No involuntary movement. Deep tendon reflexes are 1+ symmetric with downgoing toes. SENSORY EXAMINATION: Normal to pinprick and light touch. Gait is slow, somewhat antalgic due to pain in her knee. IMPRESSION: 1. Recurrent amnestic episodes, most likely representing transient global amnesia, rule out nonconvulsive seizure activity. 2. Pancytopenia, probably drug-induced. 3. History of carcinoid tumor. 4. Anxiety. 5. Degenerative joint disease. RECOMMENDATIONS: 1. EEG. 2. Obtain previous workup from [facility]. 3. Observe for any paroxysmal events. 4. The patient is strongly recommended to stop driving. 5. Oncology evaluation regarding pancytopenia. 6. Check carotid duplex study. 7. Orthostatic blood pressure measurements. 8. I discussed the patient's status in detail with her daughter who was present during this exam. Thank you for allowing me to see this interesting patient in neurology consultation. Gerson Nugent M.D. DR: ZO JOB#: [id number] CC:
[2017-09-02] MEDS: Heparin 5000 units/ml inj SUBQ SCH ×2 (09:00→21:00)
[2017-09-02] MEDS: Docusate 100mg cap ORAL SCH ×2 (09:00→21:00)
[2017-09-02] MEDS: Cholestyramine 4gm Pkt ORAL SCH ×3 (09:07→18:00)
[2017-09-02] MEDS: Magnesium Oxide 400mg tab ORAL SCH ×2 (09:08→18:30)
[2017-09-02] MEDS: DULoxetine 30mg cap ORAL SCH (09:08)
[2017-09-02] MEDS: Aspirin Baby 81mg ORAL SCH (09:08)
--- NOTE | 2017-09-02 10:13 | Internal Med Progress Note ---
Subjective Date of Service: Sep 02, 2017 Physician Name Abel Mercado Attending Physician Kwabena Rosen MD Current Medications Medications (Trade) Dose Ordered Sig/Ginger Route PRN Reason Start Time Stop Time Status Last Admin Dose Admin Acetaminophen (Tylenol) 650 mg Q4H PRN ORAL Mild Pain (Pain 1-3)/FEVER 08/31/17 07:15 09/30/17 07:14 Acetaminophen (Tylenol) 650 mg Q4H PRN RECTAL Mild Pain (Pain Scale 1-3) 08/31/17 07:15 09/30/17 07:14 Acetaminophen/ Hydrocodone Bitart ([place] 5/325) 1 tab Q6H PRN ORAL Moderate Pain (Pain Scale 4-6) 08/31/17 11:00 09/07/17 10:59 Aspirin (ASA) 81 mg DAILY ORAL 08/31/17 09:30 09/30/17 09:29 09/02/17 09:08 Cholestyramine Resin (Questran) 4 gm THREE TIMES A DAY ORAL 08/31/17 09:30 09/30/17 09:29 09/02/17 09:07 Dextrose (Dextrose 50%) STAT PRN IV Hypoglycemia 08/31/17 07:15 09/30/17 07:14 Dextrose/ Electrolytes 1,000 ml @ 75 mls/hr [id number] IV 08/31/17 10:00 09/30/17 09:59 08/31/17 11:55 Docusate Sodium (Colace) 100 mg EVERY 12 HOURS ORAL 08/31/17 09:30 09/30/17 09:29 09/01/17 20:53 Duloxetine HCl (Cymbalta) 30 mg DAILY ORAL 08/31/17 09:30 09/30/17 09:29 09/02/17 09:08 Famotidine (Pepcid) 20 mg DAILY ORAL 09/01/17 09:00 10/01/17 08:59 09/02/17 09:07 Heparin Sodium (Porcine) (Heparin 5000 units/ml) 5,000 units EVERY 12 HOURS SUBQ 08/31/17 11:30 09/30/17 11:29 09/01/17 20:52 Magnesium Hydroxide (Mom) 30 ml HSPRN PRN ORAL Constipation 08/31/17 09:00 09/30/17 07:14 Magnesium Oxide (Mag-Ox 400mg) 400 mg BID ORAL 08/31/17 18:00 09/30/17 17:59 09/02/17 09:08 Ondansetron HCl (Zofran) 4 mg Q6H PRN IVP Nausea & Vomiting 08/31/17 07:15 09/30/17 07:14 Polyethylene Glycol (Miralax) 17 gm DAILYPRN PRN ORAL Constipation 08/31/17 07:15 09/30/17 07:14 Allergies: Coded Allergies: CEFAZOLIN (Verified Allergy, Intermediate, Hives, 08/31/17) CEPHALEXIN (Verified Allergy, Intermediate, Hives, 08/31/17) CEPHRADINE (Verified Allergy, Intermediate, Hives, 08/31/17) CHLOROPHYLLIN (Verified Allergy, Intermediate, Hives, 08/31/17) ROS Limited/Unobtainable: No Constitutional: Reports: no symptoms HEENT: Reports: no symptoms Cardiovascular: Reports: no symptoms Respiratory: Reports: no symptoms Gastrointestinal/Abdominal: Reports: no symptoms Genitourinary: Reports: no symptoms Neurologic/Psychiatric: Reports: no symptoms Subjective 76 YO F admitted with recurrent amnestic episodes. Cover for Int Med-Dr Rosen. Objective Last Vital Signs Date Time Temp Pulse Resp B/P (MAP) Pulse Ox O2 Delivery O2 Flow Rate FiO2 09/02/17 08:00 98.1 52 18 110/53 100 Room Air Laboratory Tests Test 09/01/17 13:55 09/02/17 06:30 White Blood Count 2.6 K/UL (4.8-10.8) L 2.1 K/UL (4.8-10.8) *L Red Blood Count 2.79 M/UL (4.20-5.40) L 2.55 M/UL (4.20-5.40) L Hemoglobin 8.5 G/DL (12.0-16.0) L 7.9 G/DL (12.0-16.0) L Hematocrit 27.6 % (37.0-47.0) L 25.2 % (37.0-47.0) L Mean Corpuscular Volume 99 FL (80-99) 99 FL (80-99) Mean Corpuscular Hemoglobin 30.5 PG (27.0-31.0) 30.8 PG (27.0-31.0) Mean Corpuscular Hemoglobin Concent 30.8 G/DL (32.0-36.0) L 31.1 G/DL (32.0-36.0) L Red Cell Distribution Width 14.1 % (11.6-14.8) 14.1 % (11.6-14.8) Platelet Count 130 K/UL (150-450) L 109 K/UL (150-450) L Mean Platelet Volume 8.3 FL (6.5-10.1) 8.3 FL (6.5-10.1) Neutrophils (%) (Auto) % (45.0-75.0) % (45.0-75.0) Lymphocytes (%) (Auto) % (20.0-45.0) % (20.0-45.0) Monocytes (%) (Auto) % (1.0-10.0) % (1.0-10.0) Eosinophils (%) (Auto) % (0.0-3.0) % (0.0-3.0) Basophils (%) (Auto) % (0.0-2.0) % (0.0-2.0) Differential Total Cells Counted 100 Neutrophils % (Manual) 78 % (45-75) H Pending Lymphocytes % (Manual) 10 % (20-45) L Pending Monocytes % (Manual) 11 % (1-10) H Eosinophils % (Manual) 1 % (0-3) Basophils % (Manual) 0 % (0-2) Band Neutrophils 0 % (0-8) Platelet Estimate Decreased L Pending Platelet Morphology Normal Pending Hypochromasia 1+ Sodium Level 146 MMOL/L (136-145) H Potassium Level 4.4 MMOL/L (3.5-5.1) Chloride Level 110 MMOL/L (98-107) H Carbon Dioxide Level 31 MMOL/L (21-32) Anion Gap 6 mmol/L (5-15) Blood Urea Nitrogen 13 mg/dL (7-18) Creatinine 1.0 MG/DL (0.55-1.30) Estimat Glomerular Filtration Rate mL/min (>60) Glucose Level 99 MG/DL (74-106) Calcium Level 7.5 MG/DL (8.5-10.1) L Troponin I 0.021 ng/mL (0.000-0.056) Intake and Output 09/01/17 09/02/17 19:00 07:00 Intake Total 944 ml Balance 944 ml Intake Oral 944 ml # Voids 4 3 Objective General Appearance: WD/WN, no apparent distress, alert EENT: PERRL/EOMI, normal ENT inspection, TMs normal Neck: non-tender, normal alignment, supple, normal inspection Cardiovascular: normal peripheral pulses, normal rate, regular rhythm, no gallop/murmur, no JVD Respiratory/Chest: chest wall non-tender, lungs clear, normal breath sounds, no respiratory distress, no accessory muscle use Abdomen: normal bowel sounds, non tender, soft, no organomegaly, no mass Extremities: normal range of motion 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 [facility] at [facility] (3) Syncope (4) Bradycardia Assessment & Plan: See cardiology note. (5) recurrent amnestic episodes (6) TGA (transient global amnesia) Assessment & Plan: See neurology note. Await MRI brain. (7) Pancytopenia due to chemotherapy (8) Depression ABEL MERCADO Sep 02, 2017 10:13
[2017-09-02 12:00] VITALS: BP 127/71
--- NOTE | 2017-09-02 12:32 | Pulmonology Progress Note ---
Assessment/Plan Problems: (1) Acute encephalopathy (2) Carcinomatosis (3) TGA (transient global amnesia) (4) Pancytopenia due to chemotherapy (5) Bradycardia Assessment/Plan pt/ot f/u cardio and neuro evaluation anemia w/u blood smear r/o GI bleed Subjective ROS Limited/Unobtainable: No Interval Events: no new complains Allergies: Coded Allergies: CEFAZOLIN (Verified Allergy, Intermediate, Hives, 08/31/17) CEPHALEXIN (Verified Allergy, Intermediate, Hives, 08/31/17) CEPHRADINE (Verified Allergy, Intermediate, Hives, 08/31/17) CHLOROPHYLLIN (Verified Allergy, Intermediate, Hives, 08/31/17) Objective Last 24 Hour Vital Signs Date Time Temp Pulse Resp B/P (MAP) Pulse Ox O2 Delivery O2 Flow Rate FiO2 09/02/17 08:00 98.1 52 18 110/53 100 Room Air 09/02/17 04:00 98.1 61 20 113/51 98 Room Air 61 09/02/17 04:00 98.1 61 20 113/51 98 Room Air 61 09/02/17 04:00 59 09/02/17 00:00 64 09/02/17 00:00 98.4 67 22 152/81 93 Room Air 67 09/02/17 00:00 98.4 67 22 152/81 93 Room Air 67 09/01/17 20:00 98.1 59 21 125/48 100 Room Air 59 09/01/17 20:00 55 09/01/17 17:04 54 09/01/17 16:00 97.0 56 18 128/59 99 Room Air Intake and Output 09/01/17 09/02/17 19:00 07:00 Intake Total 944 ml Balance 944 ml Intake Oral 944 ml # Voids 4 3 General Appearance: WD/WN HEENT: normocephalic, atraumatic Respiratory/Chest: chest wall non-tender Breasts: no masses Cardiovascular: normal peripheral pulses, normal rate Abdomen: normal bowel sounds, soft, non tender Genitourinary: normal external genitalia Extremities: no clubbing Skin: no lesions Neurologic/Psychiatric: 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 II-XII grossly normal, no motor/sensory deficits Lymphatic: no neck adenopathy Laboratory Tests 09/01/17 13:55: White Blood Count 2.6L, Red Blood Count 2.79L, Hemoglobin 8.5L, Hematocrit 27.6L , Mean Corpuscular Volume 99, Mean Corpuscular Hemoglobin 30.5, Mean Corpuscular Hemoglobin Concent 30.8L, Red Cell Distribution Width 14.1, Platelet Count 130L, Mean Platelet Volume 8.3, Neutrophils (%) (Auto) , Lymphocytes (%) (Auto) , Monocytes (%) (Auto) , Eosinophils (%) (Auto) , Basophils (%) (Auto) , Differential Total Cells Counted 100, Neutrophils % ( Manual) 78H, Lymphocytes % (Manual) 10L, Monocytes % (Manual) 11H, Eosinophils % (Manual) 1, Basophils % (Manual) 0, Band Neutrophils 0, Platelet Estimate DecreasedL, Platelet Morphology Normal, Hypochromasia 1+ 09/02/17 06:30: White Blood Count 2.1*L, Red Blood Count 2.55L, Hemoglobin 7.9L, Hematocrit 25.2L, Mean Corpuscular Volume 99, Mean Corpuscular Hemoglobin 30.8, Mean Corpuscular Hemoglobin Concent 31.1L, Red Cell Distribution Width 14.1, Platelet Count 109L, Mean Platelet Volume 8.3, Neutrophils (%) (Auto) , Lymphocytes (%) (Auto) , Monocytes (%) (Auto) , Eosinophils (%) (Auto) , Basophils (%) (Auto) , Differential Total Cells Counted 100, Neutrophils % ( Manual) 66, Lymphocytes % (Manual) 17L, Monocytes % (Manual) 14H, Eosinophils % (Manual) 3, Basophils % (Manual) 0, Band Neutrophils 0, Platelet Estimate DecreasedL, Platelet Morphology Normal, Hypochromasia 3+, Anisocytosis 1+, Sodium Level 146H, Potassium Level 4.4, Chloride Level 110H, Carbon Dioxide Level 31, Anion Gap 6, Blood Urea Nitrogen 13, Creatinine 1.0, Estimat Glomerular Filtration Rate , Glucose Level 99, Calcium Level 7.5L, Troponin I 0.021 Current Medications Medications (Trade) Dose Ordered Sig/Ginger Route PRN Reason Start Time Stop Time Status Last Admin Dose Admin Acetaminophen (Tylenol) 650 mg Q4H PRN ORAL Mild Pain (Pain 1-3)/FEVER 08/31/17 07:15 09/30/17 07:14 Acetaminophen (Tylenol) 650 mg Q4H PRN RECTAL Mild Pain (Pain Scale 1-3) 08/31/17 07:15 09/30/17 07:14 Acetaminophen/ Hydrocodone Bitart ([place] 5/325) 1 tab Q6H PRN ORAL Moderate Pain (Pain Scale 4-6) 08/31/17 11:00 09/07/17 10:59 Aspirin (ASA) 81 mg DAILY ORAL 08/31/17 09:30 09/30/17 09:29 09/02/17 09:08 Cholestyramine Resin (Questran) 4 gm THREE TIMES A DAY ORAL 08/31/17 09:30 09/30/17 09:29 09/02/17 09:07 Dextrose (Dextrose 50%) STAT PRN IV Hypoglycemia 08/31/17 07:15 09/30/17 07:14 Docusate Sodium (Colace) 100 mg EVERY 12 HOURS ORAL 08/31/17 09:30 09/30/17 09:29 09/01/17 20:53 Duloxetine HCl (Cymbalta) 30 mg DAILY ORAL 08/31/17 09:30 09/30/17 09:29 09/02/17 09:08 Famotidine (Pepcid) 20 mg DAILY ORAL 09/01/17 09:00 10/01/17 08:59 09/02/17 09:07 Heparin Sodium (Porcine) (Heparin 5000 units/ml) 5,000 units EVERY 12 HOURS SUBQ 08/31/17 11:30 09/30/17 11:29 09/01/17 20:52 Magnesium Hydroxide (Mom) 30 ml HSPRN PRN ORAL Constipation 08/31/17 09:00 09/30/17 07:14 Magnesium Oxide (Mag-Ox 400mg) 400 mg BID ORAL 08/31/17 18:00 09/30/17 17:59 09/02/17 09:08 Ondansetron HCl (Zofran) 4 mg Q6H PRN IVP Nausea & Vomiting 08/31/17 07:15 09/30/17 07:14 Polyethylene Glycol (Miralax) 17 gm DAILYPRN PRN ORAL Constipation 08/31/17 07:15 09/30/17 07:14 JIMMIE HARGROVE Sep 02, 2017 12:32
--- NOTE | 2017-09-02 12:57 | Cardiac Electrophysiology PN ---
Assessment/Plan Assessment/Plan 1. Two episodes of syncope in a patient with history of bradycardia. No sig arrhythmias on tele except occasional kelley in Sinus kelley 45. The echocardiogram showed ejection fraction of 60% with mild left ventricular hypertrophy with mild diastolic dysfunction. Keep the patient off any sinus or AV [place] blocking agents. 2. History of carcinoid syndrome, status post chemotherapy. 3. Pancytopenia, likely secondary to chemotherapeutic agent. 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 Lowest HR was in 50s. No chest pain Objective Last 24 Hour Vital Signs Date Time Temp Pulse Resp B/P (MAP) Pulse Ox O2 Delivery O2 Flow Rate FiO2 09/02/17 08:00 98.1 52 18 110/53 100 Room Air 09/02/17 08:00 57 09/02/17 04:00 98.1 61 20 113/51 98 Room Air 61 09/02/17 04:00 98.1 61 20 113/51 98 Room Air 61 09/02/17 04:00 59 09/02/17 00:00 64 09/02/17 00:00 98.4 67 22 152/81 93 Room Air 67 09/02/17 00:00 98.4 67 22 152/81 93 Room Air 67 09/01/17 20:00 98.1 59 21 125/48 100 Room Air 59 09/01/17 20:00 55 09/01/17 17:04 54 09/01/17 16:00 97.0 56 18 128/59 99 Room Air Intake and Output 09/01/17 09/02/17 18:59 06:59 Intake Total 944 ml Balance 944 ml Intake Oral 944 ml # Voids 4 3 Laboratory Tests Test 09/01/17 13:55 09/02/17 06:30 White Blood Count 2.6 K/UL (4.8-10.8) L 2.1 K/UL (4.8-10.8) *L Red Blood Count 2.79 M/UL (4.20-5.40) L 2.55 M/UL (4.20-5.40) L Hemoglobin 8.5 G/DL (12.0-16.0) L 7.9 G/DL (12.0-16.0) L Hematocrit 27.6 % (37.0-47.0) L 25.2 % (37.0-47.0) L Mean Corpuscular Volume 99 FL (80-99) 99 FL (80-99) Mean Corpuscular Hemoglobin 30.5 PG (27.0-31.0) 30.8 PG (27.0-31.0) Mean Corpuscular Hemoglobin Concent 30.8 G/DL (32.0-36.0) L 31.1 G/DL (32.0-36.0) L Red Cell Distribution Width 14.1 % (11.6-14.8) 14.1 % (11.6-14.8) Platelet Count 130 K/UL (150-450) L 109 K/UL (150-450) L Mean Platelet Volume 8.3 FL (6.5-10.1) 8.3 FL (6.5-10.1) Neutrophils (%) (Auto) % (45.0-75.0) % (45.0-75.0) Lymphocytes (%) (Auto) % (20.0-45.0) % (20.0-45.0) Monocytes (%) (Auto) % (1.0-10.0) % (1.0-10.0) Eosinophils (%) (Auto) % (0.0-3.0) % (0.0-3.0) Basophils (%) (Auto) % (0.0-2.0) % (0.0-2.0) Differential Total Cells Counted 100 100 Neutrophils % (Manual) 78 % (45-75) H 66 % (45-75) Lymphocytes % (Manual) 10 % (20-45) L 17 % (20-45) L Monocytes % (Manual) 11 % (1-10) H 14 % (1-10) H Eosinophils % (Manual) 1 % (0-3) 3 % (0-3) Basophils % (Manual) 0 % (0-2) 0 % (0-2) Band Neutrophils 0 % (0-8) 0 % (0-8) Platelet Estimate Decreased L Decreased L Platelet Morphology Normal Normal Hypochromasia 1+ 3+ Anisocytosis 1+ Sodium Level 146 MMOL/L (136-145) H Potassium Level 4.4 MMOL/L (3.5-5.1) Chloride Level 110 MMOL/L (98-107) H Carbon Dioxide Level 31 MMOL/L (21-32) Anion Gap 6 mmol/L (5-15) Blood Urea Nitrogen 13 mg/dL (7-18) Creatinine 1.0 MG/DL (0.55-1.30) Estimat Glomerular Filtration Rate mL/min (>60) Glucose Level 99 MG/DL (74-106) Calcium Level 7.5 MG/DL (8.5-10.1) L Troponin I 0.021 ng/mL (0.000-0.056) Objective HEAD AND NECK: No JVD. LUNGS: Clear. CARDIOVASCULAR: Regular S1 and S2 with no gallop or murmur. ABDOMEN: Soft and nontender. EXTREMITIES: No pitting edema. CRISTIN GIBBS Sep 02, 2017 12:57
[2017-09-02 16:00] VITALS: BP 124/54
--- NOTE | 2017-09-02 17:00 | Electroencephalogram ---
DATE OF PROCEDURE: 09/01/2017 ELECTROENCEPHALOGRAPHY REPORT READING PHYSICIAN: Gerson Nugent M.D. REQUESTING PHYSICIAN: Kwabena Rosen M.D. HISTORY: The patient is a 76-year-old female with a history of intermittent transient amnestic episode, current treatment include Strum. No sedation was given. No anticonvulsants. EEG was done using 18 electrodes placed [id number], [id number] montages according to 10/20 [employer] System. The patient described as being awake or drowsy, fairly cooperative, normal mentality. Most wakeful portions of recording, background activity consists of a low to medium voltage, 8 to 9 cycles per second alpha activity with no asymmetry from side to side. No spike or wave activities. Photic stimulation from 3 to 32 hertz was done, result no significant changes. As recording progressed, epochs of generalized slowing and disorganization of background was noted corresponding to sleep stages. IMPRESSION: Normal awake stage 1 sleep EEG with photic stimulation. COMMENT: Absence of paroxysmal event on a single recording does not rule out seizure disorder. Gerson Nugent M.D. DR: HETAL JOB#: [id number] CC:
--- NOTE | 2017-09-02 18:09 | Neurology Progress Note ---
Interim History Interim History ROS Limited/Unobtainable: No Complaints: feel ok Events: no paroxysmal events Objective Physical Exam Last Vital Signs Date Time Temp Pulse Resp B/P (MAP) Pulse Ox O2 Delivery O2 Flow Rate FiO2 09/02/17 16:00 51 09/02/17 16:00 96.3 18 124/54 100 Room Air Laboratory Tests Test 09/02/17 06:30 White Blood Count 2.1 K/UL (4.8-10.8) *L Red Blood Count 2.55 M/UL (4.20-5.40) L Hemoglobin 7.9 G/DL (12.0-16.0) L Hematocrit 25.2 % (37.0-47.0) L Mean Corpuscular Volume 99 FL (80-99) Mean Corpuscular Hemoglobin 30.8 PG (27.0-31.0) Mean Corpuscular Hemoglobin Concent 31.1 G/DL (32.0-36.0) L Red Cell Distribution Width 14.1 % (11.6-14.8) Platelet Count 109 K/UL (150-450) L Mean Platelet Volume 8.3 FL (6.5-10.1) Neutrophils (%) (Auto) % (45.0-75.0) Lymphocytes (%) (Auto) % (20.0-45.0) Monocytes (%) (Auto) % (1.0-10.0) Eosinophils (%) (Auto) % (0.0-3.0) Basophils (%) (Auto) % (0.0-2.0) Differential Total Cells Counted 100 Neutrophils % (Manual) 66 % (45-75) Lymphocytes % (Manual) 17 % (20-45) L Monocytes % (Manual) 14 % (1-10) H Eosinophils % (Manual) 3 % (0-3) Basophils % (Manual) 0 % (0-2) Band Neutrophils 0 % (0-8) Platelet Estimate Decreased L Platelet Morphology Normal Hypochromasia 3+ Anisocytosis 1+ Sodium Level 146 MMOL/L (136-145) H Potassium Level 4.4 MMOL/L (3.5-5.1) Chloride Level 110 MMOL/L (98-107) H Carbon Dioxide Level 31 MMOL/L (21-32) Anion Gap 6 mmol/L (5-15) Blood Urea Nitrogen 13 mg/dL (7-18) Creatinine 1.0 MG/DL (0.55-1.30) Estimat Glomerular Filtration Rate mL/min (>60) Glucose Level 99 MG/DL (74-106) Calcium Level 7.5 MG/DL (8.5-10.1) L Troponin I 0.021 ng/mL (0.000-0.056) General: well developed, well nourished, no acute distress, other Head: normocophalic, atraumatic Neck: no rigidity EENT: benign Neurologic Exam Mental Status: awake, alert, oriented x4, normal cognition, good mathematical skills, normal recent memory, normal remote memory, preserved visuospatial function Speech: normal speech, no dysarthia Language: normal language, no aphasia Cranial Nerve II: fundus normal, visual lennon, no papilledema Cranial Nerves III, IV, : PERRLA, EOMI, pupils Cranial Nerve V: normal facial sensations, temporales function normal, masseters function normal, pterygoids function normal Cranial Nerve VII: no facial asymmetry, normal facial expressions Cranial Nerve VIII: normal hearing, no nystagmus Cranial Nerve IX: normal palate elevation, gag response Cranial Nerve X: no voice hoarseness Cranial Nerve XI: SCM symmetric, trapezii function normal Cranial Nerve XII: tongue midline, no tongue atrophy/fasciculations Motor System: normal muscle tone, strength 5/5, no involuntary movement, no muscle wasting Sensory: normal pinprick, normal light touch, normal position sense, normal graphesthesia Coordination: normal finger to nose bilaterally, normal heel to deleon bilaterally, negative Romberg test Deep Tendon Reflexes: 1+ bicep (L), 1+ bicep (R), 1+ tricep (L), 1+ tricep (R) , 1+ brachioradialis (L), 1+ brachioradialis (R), 1+ knee (L), 1+ knee (R), 1+ ankle (L), 1+ ankle (R) Reflexes: flexor plantar (L), flexor plantar (R) Stance: normal Gait: stable, normal regular, heel + toe gait Impression/Recommendations Problems: (1) recurrent amnestic episodes (2) TGA (transient global amnesia) (3) Pancytopenia due to chemotherapy (4) Depression (5) Carcinomatosis Status: doing well, stable, progressing Recommendations #[id number] EEG OK neuro stable CONSTANCE STOLL Sep 02, 2017 18:09
[2017-09-02 20:00] VITALS: BP 109/50
[2017-09-02] MEDS ORDERED: TBO-Filgrastim 300 mcg/0.5ml SQ ONE (21:00)
--- NOTE | 2017-09-02 21:49 | Diagnostic Imaging Report ---
Indication: Syncope. Transient global amnesia. History of liver carcinoma. Chemotherapy. Altered mental status Technique: The head was imaged in a 1.5 Batsheva magnet. Sequences obtained include sagittal and axial T1 FLAIR, axial T2 fast spin echo with fat saturation, axial T2 FLAIR, diffusion and ADC map. Gadolinium-enhanced axial and coronal T1 FLAIR obtained also. Comparison: None Findings: The size, contour, and configuration of the sulci, ventricles, and basal cisterns appear normal. Spivey-white differentiation is normal. There is no restricted diffusion. There is no mass effect, midline shift, edema, or hemorrhage. There are no abnormal extra-axial or intra-axial fluid collections. The corpus callosum is unremarkable. The brainstem and cerebellum are unremarkable. The sella is unremarkable. Bone marrow signal within the visualized osseous structures appears age appropriate and unremarkable otherwise. 2.7 x 1.1 x 1.9 cm extra-axial mass over the right frontal convexity demonstrated. The mass is isointense on all imaging sequences and enhances intensely. Appearance is consistent with a meningioma. Impression: Negative MRI brain with and without contrast. Incidental 2.7 x 1.1 x 1.9 cm right frontal lobe meningioma.
[2017-09-03] VITALS: BP 107/60
--- NOTE | 2017-09-03 | Cardiology Report ---
APPROVED REPORT EKG Measurement Heart [id number] DC [id number] Normal sinus rhythm Low voltage QRS Borderline ECG
[2017-09-03 04:38] VITALS: BP 120/58
[2017-09-03 04:39] VITALS: BP 120/58
[2017-09-03 05:14] LABS: HEMATOCRIT 24.1 % (37.0-47.0); HEMOGLOBIN 7.7 G/DL (12.0-16.0); MEAN CORPUSCULAR VOLUME 97 FL (80-99); PLATELET COUNT 103 K/UL (150-450); RED CELL DISTRIBUTION WIDTH 13.8 % (11.6-14.8); WHITE BLOOD COUNT 5.1 K/UL (4.8-10.8)
[2017-09-03 06:14] LABS: % IRON SATURATION 30 % (15-50); IRON 57 ug/dL (50-175); TOTAL IRON BINDING CAPACITY 190 ug/dL (250-450)
[2017-09-03 06:25] LABS: ANION GAP 8 mmol/L (5-15); BLOOD UREA NITROGEN 18 mg/dL (7-18); CALCIUM 7.5 MG/DL (8.5-10.1); CARBON DIOXIDE 28 MMOL/L (21-32); CHLORIDE 110 MMOL/L (98-107); CREATININE 0.9 MG/DL (0.55-1.30); POTASSIUM 4.1 MMOL/L (3.5-5.1); SODIUM 145 MMOL/L (136-145)
[2017-09-03 07:27] LABS: LACTATE DEHYDROGENASE 337 U/L (81-234)
[2017-09-03 08:00] VITALS: BP 108/47
[2017-09-03] MEDS: Aspirin Baby 81mg ORAL SCH (08:51)
[2017-09-03] MEDS: Heparin 5000 units/ml inj SUBQ SCH (08:51)
[2017-09-03] MEDS: Magnesium Oxide 400mg tab ORAL SCH ×2 (08:52→18:00)
[2017-09-03] MEDS: DULoxetine 30mg cap ORAL SCH (08:52)
[2017-09-03] MEDS: Docusate 100mg cap ORAL SCH (08:52)
[2017-09-03] MEDS: Cholestyramine 4gm Pkt ORAL SCH ×3 (08:52→18:00)
--- NOTE | 2017-09-03 10:58 | Pulmonology Progress Note ---
Assessment/Plan Problems: (1) Acute encephalopathy (2) Carcinomatosis (3) TGA (transient global amnesia) (4) Pancytopenia due to chemotherapy (5) Bradycardia (6) Severe anemia Assessment/Plan pt/ot f/u cardio and neuro evaluation anemia w/u blood smear r/o GI bleed transfuse one unit of prbc MRI brain was negative dc home after blood transfusion, of OK with cardiology Subjective ROS Limited/Unobtainable: No Constitutional: Reports: no symptoms HEENT: Repors: no symptoms Respiratory: Reports: no symptoms Allergies: Coded Allergies: CEFAZOLIN (Verified Allergy, Intermediate, Hives, 08/31/17) CEPHALEXIN (Verified Allergy, Intermediate, Hives, 08/31/17) CEPHRADINE (Verified Allergy, Intermediate, Hives, 08/31/17) CHLOROPHYLLIN (Verified Allergy, Intermediate, Hives, 08/31/17) Objective Last 24 Hour Vital Signs Date Time Temp Pulse Resp B/P (MAP) Pulse Ox O2 Delivery O2 Flow Rate FiO2 09/03/17 08:00 53 09/03/17 08:00 96.8 52 18 108/47 99 Room Air 09/03/17 04:39 96.8 52 20 120/58 100 Room Air 09/03/17 04:38 96.8 20 120/58 100 Room Air 09/03/17 04:00 58 09/03/17 00:00 98.2 66 20 107/60 99 Room Air 09/03/17 00:00 56 09/02/17 20:00 98.2 68 20 109/50 98 Room Air 09/02/17 20:00 102 09/02/17 16:00 51 09/02/17 16:00 96.3 53 18 124/54 100 Room Air 09/02/17 12:00 98.1 74 18 127/71 100 Room Air 09/02/17 12:00 62 Intake and Output 09/02/17 09/03/17 19:00 07:00 Intake Total 1600 ml Balance 1600 ml Intake Oral 1150 ml IV Total 450 ml # Voids 3 3 # Bowel Movements 1 General Appearance: WD/WN HEENT: normocephalic Respiratory/Chest: chest wall non-tender, lungs clear Breasts: no masses Cardiovascular: normal rate Abdomen: normal bowel sounds, soft, non tender Extremities: no cyanosis Skin: no rash Laboratory Tests 09/03/17 04:20: White Blood Count 5.1#, Red Blood Count 2.50L, Hemoglobin 7.7L, Hematocrit 24.1L , Mean Corpuscular Volume 97, Mean Corpuscular Hemoglobin 31.0, Mean Corpuscular Hemoglobin Concent 32.0, Red Cell Distribution Width 13.8, Platelet Count 103L, Mean Platelet Volume 8.1, Neutrophils (%) (Auto) , Lymphocytes (%) ( Auto) , Monocytes (%) (Auto) , Eosinophils (%) (Auto) , Basophils (%) (Auto) , Erythrocyte Sedimentation Rate [Pending], Reticulocyte Count [Pending], Prothrombin Time 10.7, Prothromb Time International Ratio 1.0, Activated Partial Thromboplast Time 26, Fibrinogen 337, Sodium Level 145, Potassium Level 4.1, Chloride Level 110H, Carbon Dioxide Level 28, Anion Gap 8, Blood Urea Nitrogen 18, Creatinine 0.9, Estimat Glomerular Filtration Rate , Glucose Level 98, Calcium Level 7.5L, Iron Level 57, Total Iron Binding Capacity 190L, Percent Iron Saturation 30, Unsaturated Iron Binding 133, Ferritin 132, Lactate Dehydrogenase 337H, Alpha Fetoprotein [Pending], Vitamin B12 Level 792, Folate 4.1L, Thyroid Stimulating Hormone (TSH) 0.903, Hepatitis A IgM Antibody [Pending ], Hepatitis B Surface Antigen [Pending], Hepatitis B Core IgM Antibody [Pending ], Hepatitis C Antibody [Pending], HIV (1&2) Antibody Rapid Negative Current Medications Medications (Trade) Dose Ordered Sig/Ginger Route PRN Reason Start Time Stop Time Status Last Admin Dose Admin Acetaminophen (Tylenol) 650 mg Q4H PRN ORAL Mild Pain (Pain 1-3)/FEVER 08/31/17 07:15 09/30/17 07:14 Acetaminophen (Tylenol) 650 mg Q4H PRN RECTAL Mild Pain (Pain Scale 1-3) 08/31/17 07:15 09/30/17 07:14 Acetaminophen/ Hydrocodone Bitart ([place] 5/325) 1 tab Q6H PRN ORAL Moderate Pain (Pain Scale 4-6) 08/31/17 11:00 09/07/17 10:59 09/03/17 09:01 Aspirin (ASA) 81 mg DAILY ORAL 08/31/17 09:30 09/30/17 09:29 09/03/17 08:51 Cholestyramine Resin (Questran) 4 gm THREE TIMES A DAY ORAL 08/31/17 09:30 09/30/17 09:29 09/03/17 08:52 Dextrose (Dextrose 50%) STAT PRN IV Hypoglycemia 08/31/17 07:15 09/30/17 07:14 Docusate Sodium (Colace) 100 mg EVERY 12 HOURS ORAL 08/31/17 09:30 09/30/17 09:29 09/01/17 20:53 Duloxetine HCl (Cymbalta) 30 mg DAILY ORAL 08/31/17 09:30 09/30/17 09:29 09/03/17 08:52 Famotidine (Pepcid) 20 mg DAILY ORAL 09/01/17 09:00 10/01/17 08:59 09/03/17 08:51 Heparin Sodium (Porcine) (Heparin 5000 units/ml) 5,000 units EVERY 12 HOURS SUBQ 09/02/17 21:00 09/30/17 11:29 Magnesium Hydroxide (Mom) 30 ml HSPRN PRN ORAL Constipation 08/31/17 09:00 09/30/17 07:14 Magnesium Oxide (Mag-Ox 400mg) 400 mg BID ORAL 08/31/17 18:00 09/30/17 17:59 09/03/17 08:52 Ondansetron HCl (Zofran) 4 mg Q6H PRN IVP Nausea & Vomiting 08/31/17 07:15 09/30/17 07:14 Polyethylene Glycol (Miralax) 17 gm DAILYPRN PRN ORAL Constipation 08/31/17 07:15 09/30/17 07:14 JIMMIE HARGROVE Sep 03, 2017 10:58
[2017-09-03 12:00] VITALS: BP_SYST 108; BP_SYST 113; BP_DIAS 47; BP_DIAS 50
--- NOTE | 2017-09-03 14:33 | Diagnostic Imaging Report ---
Indication: Shortness of breath Technique: XRAY Chest 2v Comparison: None Findings: Cardiomediastinal silhouette is within normal limits. There is no consolidation or pleural effusion. Degenerative changes of the spine are noted. Degenerative changes of the shoulders are also seen. Impression: No acute cardiopulmonary disease.
--- NOTE | 2017-09-03 15:19 | Cardiac Electrophysiology PN ---
Assessment/Plan Assessment/Plan 1. Two episodes of syncope in a patient with history of bradycardia. No sig arrhythmias on tele except occasional kelley in Sinus kelley 45. The echocardiogram showed ejection fraction of 60% with mild left ventricular hypertrophy with mild diastolic dysfunction. Keep the patient off any sinus or AV [place] blocking agents. 2. History of carcinoid syndrome, status post chemotherapy. 3. Pancytopenia, likely secondary to chemotherapeutic agent. 4. Anemia, getting blood transfusion. DW RN Subjective Subjective Still in 50s. Lowest 52 but at times up to 130s sinus tach. No chest pain Objective Last 24 Hour Vital Signs Date Time Temp Pulse Resp B/P (MAP) Pulse Ox O2 Delivery O2 Flow Rate FiO2 09/03/17 12:00 97.2 58 18 113/50 100 Room Air 09/03/17 08:00 53 09/03/17 08:00 96.8 52 18 108/47 99 Room Air 09/03/17 04:39 96.8 52 20 120/58 100 Room Air 09/03/17 04:38 96.8 20 120/58 100 Room Air 09/03/17 04:00 58 09/03/17 00:00 98.2 66 20 107/60 99 Room Air 09/03/17 00:00 56 09/02/17 20:00 98.2 68 20 109/50 98 Room Air 09/02/17 20:00 102 09/02/17 16:00 51 09/02/17 16:00 96.3 53 18 124/54 100 Room Air Intake and Output 09/02/17 09/03/17 19:00 07:00 Intake Total 1600 ml Balance 1600 ml Intake Oral 1150 ml IV Total 450 ml # Voids 3 3 # Bowel Movements 1 Laboratory Tests Test 09/03/17 04:20 White Blood Count 5.1 K/UL (4.8-10.8) # Red Blood Count 2.50 M/UL (4.20-5.40) L Hemoglobin 7.7 G/DL (12.0-16.0) L Hematocrit 24.1 % (37.0-47.0) L Mean Corpuscular Volume 97 FL (80-99) Mean Corpuscular Hemoglobin 31.0 PG (27.0-31.0) Mean Corpuscular Hemoglobin Concent 32.0 G/DL (32.0-36.0) Red Cell Distribution Width 13.8 % (11.6-14.8) Platelet Count 103 K/UL (150-450) L Mean Platelet Volume 8.1 FL (6.5-10.1) Neutrophils (%) (Auto) % (45.0-75.0) Lymphocytes (%) (Auto) % (20.0-45.0) Monocytes (%) (Auto) % (1.0-10.0) Eosinophils (%) (Auto) % (0.0-3.0) Basophils (%) (Auto) % (0.0-2.0) Erythrocyte Sedimentation Rate 57 MM/HR (0-30) H Reticulocyte Count 1.1 % (0.0-2.0) Prothrombin Time 10.7 SEC (9.30-11.50) Prothromb Time International Ratio 1.0 (0.9-1.1) Activated Partial Thromboplast Time 26 SEC (23-33) Fibrinogen 337 mg/dL (200-400) Sodium Level 145 MMOL/L (136-145) Potassium Level 4.1 MMOL/L (3.5-5.1) Chloride Level 110 MMOL/L (98-107) H Carbon Dioxide Level 28 MMOL/L (21-32) Anion Gap 8 mmol/L (5-15) Blood Urea Nitrogen 18 mg/dL (7-18) Creatinine 0.9 MG/DL (0.55-1.30) Estimat Glomerular Filtration Rate mL/min (>60) Glucose Level 98 MG/DL (74-106) Calcium Level 7.5 MG/DL (8.5-10.1) L Iron Level 57 ug/dL (50-175) Total Iron Binding Capacity 190 ug/dL (250-450) L Percent Iron Saturation 30 % (15-50) Unsaturated Iron Binding 133 ug/dL (112-346) Ferritin 132 NG/ML (8-388) Lactate Dehydrogenase 337 U/L (81-234) H Alpha Fetoprotein Pending Vitamin B12 Level 792 PG/ML (193-986) Folate 4.1 NG/ML (8.6-58.9) L Thyroid Stimulating Hormone (TSH) 0.903 uiU/mL (0.358-3.740) Hepatitis A IgM Antibody Pending Hepatitis B Surface Antigen Pending Hepatitis B Core IgM Antibody Pending Hepatitis C Antibody Pending HIV (1&2) Antibody Rapid Negative (NEGATIVE) Objective HEAD AND NECK: No JVD. LUNGS: Clear. CARDIOVASCULAR: Regular S1 and S2 with no gallop or murmur. ABDOMEN: Soft and nontender. EXTREMITIES: No pitting edema. CRISTIN GIBBS Sep 03, 2017 15:19
[2017-09-03] MEDS ORDERED: MAG-OX 400400 MG ORAL (15:53)
--- NOTE | 2017-09-03 15:55 | Internal Med Progress Note ---
Subjective Date of Service: Sep 03, 2017 Physician Name Abel Mercado Attending Physician Kwabena Rosen MD Current Medications Medications (Trade) Dose Ordered Sig/Ginger Route PRN Reason Start Time Stop Time Status Last Admin Dose Admin Acetaminophen (Tylenol) 650 mg Q4H PRN ORAL Mild Pain (Pain 1-3)/FEVER 08/31/17 07:15 09/30/17 07:14 Acetaminophen (Tylenol) 650 mg Q4H PRN RECTAL Mild Pain (Pain Scale 1-3) 08/31/17 07:15 09/30/17 07:14 Acetaminophen/ Hydrocodone Bitart ([place] 5/325) 1 tab Q6H PRN ORAL Moderate Pain (Pain Scale 4-6) 08/31/17 11:00 09/07/17 10:59 09/03/17 09:01 Aspirin (ASA) 81 mg DAILY ORAL 08/31/17 09:30 09/30/17 09:29 09/03/17 08:51 Cholestyramine Resin (Questran) 4 gm THREE TIMES A DAY ORAL 08/31/17 09:30 09/30/17 09:29 09/03/17 08:52 Dextrose (Dextrose 50%) STAT PRN IV Hypoglycemia 08/31/17 07:15 09/30/17 07:14 Docusate Sodium (Colace) 100 mg EVERY 12 HOURS ORAL 08/31/17 09:30 09/30/17 09:29 09/01/17 20:53 Duloxetine HCl (Cymbalta) 30 mg DAILY ORAL 08/31/17 09:30 09/30/17 09:29 09/03/17 08:52 Famotidine (Pepcid) 20 mg DAILY ORAL 09/01/17 09:00 10/01/17 08:59 09/03/17 08:51 Heparin Sodium (Porcine) (Heparin 5000 units/ml) 5,000 units EVERY 12 HOURS SUBQ 09/02/17 21:00 09/30/17 11:29 Magnesium Hydroxide (Mom) 30 ml HSPRN PRN ORAL Constipation 08/31/17 09:00 09/30/17 07:14 Magnesium Oxide (Mag-Ox 400mg) 400 mg BID ORAL 08/31/17 18:00 09/30/17 17:59 09/03/17 08:52 Ondansetron HCl (Zofran) 4 mg Q6H PRN IVP Nausea & Vomiting 08/31/17 07:15 09/30/17 07:14 Polyethylene Glycol (Miralax) 17 gm DAILYPRN PRN ORAL Constipation 08/31/17 07:15 09/30/17 07:14 Allergies: Coded Allergies: CEFAZOLIN (Verified Allergy, Intermediate, Hives, 08/31/17) CEPHALEXIN (Verified Allergy, Intermediate, Hives, 08/31/17) CEPHRADINE (Verified Allergy, Intermediate, Hives, 08/31/17) CHLOROPHYLLIN (Verified Allergy, Intermediate, Hives, 08/31/17) ROS Limited/Unobtainable: No Constitutional: Reports: no symptoms HEENT: Reports: no symptoms Cardiovascular: Reports: no symptoms Respiratory: Reports: no symptoms Gastrointestinal/Abdominal: Reports: no symptoms Genitourinary: Reports: no symptoms Neurologic/Psychiatric: Reports: no symptoms Subjective 76 YO F admitted with recurrent amnestic episodes. Cover for Int Med-Dr Rosen. Await discharge home today Objective Last Vital Signs Date Time Temp Pulse Resp B/P (MAP) Pulse Ox O2 Delivery O2 Flow Rate FiO2 09/03/17 12:00 97.2 58 18 113/50 100 Room Air Laboratory Tests Test 09/03/17 04:20 White Blood Count 5.1 K/UL (4.8-10.8) # Red Blood Count 2.50 M/UL (4.20-5.40) L Hemoglobin 7.7 G/DL (12.0-16.0) L Hematocrit 24.1 % (37.0-47.0) L Mean Corpuscular Volume 97 FL (80-99) Mean Corpuscular Hemoglobin 31.0 PG (27.0-31.0) Mean Corpuscular Hemoglobin Concent 32.0 G/DL (32.0-36.0) Red Cell Distribution Width 13.8 % (11.6-14.8) Platelet Count 103 K/UL (150-450) L Mean Platelet Volume 8.1 FL (6.5-10.1) Neutrophils (%) (Auto) % (45.0-75.0) Lymphocytes (%) (Auto) % (20.0-45.0) Monocytes (%) (Auto) % (1.0-10.0) Eosinophils (%) (Auto) % (0.0-3.0) Basophils (%) (Auto) % (0.0-2.0) Erythrocyte Sedimentation Rate 57 MM/HR (0-30) H Reticulocyte Count 1.1 % (0.0-2.0) Prothrombin Time 10.7 SEC (9.30-11.50) Prothromb Time International Ratio 1.0 (0.9-1.1) Activated Partial Thromboplast Time 26 SEC (23-33) Fibrinogen 337 mg/dL (200-400) Sodium Level 145 MMOL/L (136-145) Potassium Level 4.1 MMOL/L (3.5-5.1) Chloride Level 110 MMOL/L (98-107) H Carbon Dioxide Level 28 MMOL/L (21-32) Anion Gap 8 mmol/L (5-15) Blood Urea Nitrogen 18 mg/dL (7-18) Creatinine 0.9 MG/DL (0.55-1.30) Estimat Glomerular Filtration Rate mL/min (>60) Glucose Level 98 MG/DL (74-106) Calcium Level 7.5 MG/DL (8.5-10.1) L Iron Level 57 ug/dL (50-175) Total Iron Binding Capacity 190 ug/dL (250-450) L Percent Iron Saturation 30 % (15-50) Unsaturated Iron Binding 133 ug/dL (112-346) Ferritin 132 NG/ML (8-388) Lactate Dehydrogenase 337 U/L (81-234) H Alpha Fetoprotein Pending Vitamin B12 Level 792 PG/ML (193-986) Folate 4.1 NG/ML (8.6-58.9) L Thyroid Stimulating Hormone (TSH) 0.903 uiU/mL (0.358-3.740) Hepatitis A IgM Antibody Pending Hepatitis B Surface Antigen Pending Hepatitis B Core IgM Antibody Pending Hepatitis C Antibody Pending HIV (1&2) Antibody Rapid Negative (NEGATIVE) Intake and Output 09/02/17 09/03/17 19:00 07:00 Intake Total 1600 ml Balance 1600 ml Intake Oral 1150 ml IV Total 450 ml # Voids 3 3 # Bowel Movements 1 Objective General Appearance: WD/WN, no apparent distress, alert EENT: PERRL/EOMI, normal ENT inspection, TMs normal Neck: non-tender, normal alignment, supple, normal inspection Cardiovascular: normal peripheral pulses, normal rate, regular rhythm, no gallop/murmur, no JVD Respiratory/Chest: chest wall non-tender, lungs clear, normal breath sounds, no respiratory distress, no accessory muscle use Abdomen: normal bowel sounds, non tender, soft, no organomegaly, no mass Extremities: normal range of motion Neurologic: hand picker II-XII grossly normal, no motor/sensory deficits Assessment/Plan Problem List: (1) Hypercholesterolemia Assessment & Plan: Cont Questran (2) Carcinomatosis Assessment & Plan: Liver. Follow[facility] at [facility] (3) Syncope (4) Bradycardia Assessment & Plan: See cardiology note. (5) recurrent amnestic episodes (6) TGA (transient global amnesia) Assessment & Plan: See neurology note. MRI brain=normal. EEG normal (7) Pancytopenia due to chemotherapy Assessment & Plan: Transfuse 1 unit PRBC today (8) Depression Status: stable Assessment/Plan Discharge home today after transfusion. ABEL MERCADO Sep 03, 2017 15:55
[2017-09-03 16:00] VITALS: BP 100/50
--- NOTE | 2017-09-04 09:42 | Consultation ---
DATE OF CONSULTATION: 09/02/2017 NOTE: POOR AUDIO HEMATOLOGY/ONCOLOGY CONSULTATION CONSULTING PHYSICIAN: Ángel Nunez M.D. REQUESTING PHYSICIAN: Kwabena Rosen M.D. REASON FOR CONSULTATION: Evaluation of carcinomatosis. IDENTIFYING DATA: Dear Dr. Kwabena Rosen, The patient is a pleasant 76-year-old female with past medical history significant for carcinoid tumor, at this time presents to [facility] with two syncopal episodes , seen by Cardiology at [facility], bradycardia per the paramedics. The patient is awake, alert, had a syncopal episode paramedics picked her up and transferred to [place] as the patient is not a [place] patient. She has been seen by Cardiology Service who recommended to keep the patient off of any blocking agents. In addition, the patient with pancytopenia due to chemotherapy. Blood smear pending as well as anemia workup. Hematology Service was consulted for further evaluation and treatment. PAST MEDICAL HISTORY: Depression, osteoarthritis, and carcinoid syndrome. PAST SURGICAL HISTORY: None reported. ALLERGIES: No known significant drug allergies noted besides , Keflex, and chlorophyllin. FAMILY HISTORY: Noncontributory. SOCIAL HISTORY: Lives . Driving car as necessary. REVIEW OF SYSTEMS: A 12-point review of systems was completed and otherwise negative. PHYSICAL EXAMINATION: GENERAL: No acute distress. VITAL SIGNS: Reviewed. PULMONARY: Decreased breath sounds. CARDIOVASCULAR: Regular rate. No S3 or S4. ABDOMEN: Soft, nontender, and nondistended. EXTREMITIES: A 1+ edema. LABORATORY STUDIES: Labs reviewed. WBC 8.4, hemoglobin 7.9, hematocrit 25, and platelet count 109,000. BUN of 15 and creatinine 1. INR of 1. Urinalysis reviewed, negative. ASSESSMENT AND RECOMMENDATIONS: 1. Pancytopenia secondary to chemotherapeutic agent. At this time, I do not recommend that the patient have any significant workup. Does not require bone marrow biopsy given the patient is on treatment, and at this time administered one dose of Neupogen. 2. Anemia, secondary to chemotherapy. Obtain anemia workup to confirm no iron deficiency is present. 3. , likely reactive process. 4. Depression. 5. Transient global amnesia. 6. Carcinoid syndrome history, status post chemotherapy. Continue to monitor. She is on treatment. 7. Bradycardia. I appreciate the consultation. Ángel Nunez M.D. DR: NORMA JOB#: [id number] CC:
--- NOTE | 2017-09-04 15:42 | General Progress Note ---
Assessment/Plan Assessment/Plan ASSESSMENT AND RECOMMENDATIONS: 1. Pancytopenia secondary to chemotherapeutic agent. At this time, I do not recommend that the patient have any significant evaluation given on chemotherapy. Does not require bone marrow biopsy given the patient is on treatment, and at this time administered one dose of Neupogen. --> wbc is better and monitor 2. Anemia, secondary to chemotherapy. Obtain anemia workup to confirm no iron deficiency is present. 3. Leukocytosis is likely reactive process. 4. Depression. 5. Transient global amnesia. 6. Carcinoid syndrome history, status post chemotherapy. Continue to monitor. She is on treatment. 7. Bradycardia. Subjective Date patient seen: Sep 03, 2017 Constitutional: Denies: no symptoms, chills, diaphoresis, fever, malaise, weakness, other HEENT: Denies: no symptoms, eye pain, blurred vision, tearing, double vision, ear pain, ear discharge, nose pain, nose congestion, throat pain, throat swelling, mouth pain, mouth swelling, other Cardiovascular: Denies: no symptoms, chest pain, edema, irregular heart rate, lightheadedness, palpitations, syncope, other Respiratory: Denies: no symptoms, cough, orthopnea, shortness of breath, SOB with excertion, SOB at rest, sputum, stridor, wheezing, other Gastrointestinal/Abdominal: Denies: no symptoms, abdomen distended, abdominal pain, black stools, tarry stools, blood in stool, constipated, diarrhea, difficulty swallowing, nausea, poor appetite, poor fluid intake, rectal bleeding , vomiting, other Genitourinary: Denies: no symptoms, burning, discharge, frequency, flank pain, hematuria, incontinence, pain, urgency, other Neurologic/Psychiatric: Denies: no symptoms, anxiety, depressed, emotional problems, headache, numbness, paresthesia, pre-existing deficit, seizure, tingling, tremors, weakness, other Endocrine: Denies: no symptoms, excessive sweating, flushing, intolerance to cold, intolerance to heat, increased hunger, increased thirst, increased urine, unexplained weight gain, unexplained weight loss, other Allergies: Coded Allergies: CEFAZOLIN (Verified Allergy, Intermediate, Hives, 08/31/17) CEPHALEXIN (Verified Allergy, Intermediate, Hives, 08/31/17) CEPHRADINE (Verified Allergy, Intermediate, Hives, 08/31/17) CHLOROPHYLLIN (Verified Allergy, Intermediate, Hives, 08/31/17) Subjective no events reported, no f/c Objective Last 24 Hour Vital Signs Date Time Temp Pulse Resp B/P (MAP) Pulse Ox O2 Delivery O2 Flow Rate FiO2 09/03/17 16:00 97.7 58 18 100/50 99 Room Air Intake and Output 09/03/17 09/04/17 19:00 07:00 Intake Total 720 ml Balance 720 ml Intake Oral 720 ml # Voids 4 Height (Feet): 5 Height (Inches): 9.00 Weight (Pounds): 180 General Appearance: alert EENT: TMs normal Neck: supple Cardiovascular: normal rate Respiratory/Chest: lungs clear Abdomen: non tender Extremities: non-tender Edema: 1+ Leg (L), 1+ Leg (R) Edema: mild edema Neurologic: alert Skin: warm/dry Ángel Nunez Sep 04, 2017 15:42
--- NOTE | 2017-09-05 10:36 | Discharge Summary ---
Discharge Summary Hospital Course Date of Admission Aug 31, 2017 at 04:00 Date of Discharge Sep 03, 2017 at 18:35 Admitting Diagnosis HPI Katja Choi is a 76 year old female who was admitted on Aug 31, 2017 at 04: 00 for Syncope Hospital Course [id number] Discharge Discharge Disposition Patient was discharged to Home (01) Discharge Diagnoses: Shirin Lou NP Sep 05, 2017 10:36
--- NOTE | 2017-09-05 16:45 | Discharge Summary 2 SIG ---
DATE OF ADMISSION: 08/31/2017 DATE OF DISCHARGE: 09/03/2017 ATTENDING PHYSICIAN: Kwabena Rosen M.D. CONSULTANTS: 1. Cinda Alan M.D. 2. Seven Cedeno M.D. 3. Gerson Nugent M.D. 4. Ángel Nunez M.D. BRIEF HOSPITAL COURSE: The patient is a 76-year-old female, who was in her usual state of health until 08/30/2017. The patient apparently passed out twice and had loss of consciousness for approximately 5 minutes. She was initially transported via EMS to [facility]. The patient had a vague recollection of events. According to daughter, she received a text message saying that the patient fell down. She then came and found her laying on the bed and appeared confused. Daughter decided to take her to emergency room and helped her out to get up and walk slowly to the car. She was unable to climb up and sat down next to the car. After few minutes, daughter came back and found her laying on the ground. The patient was not talking. Body was described to be very stiff. She was able to open her eyes and was aware of daughter's presence. At this point, paramedics were then called in and she was taken to [facility] where CT scan of the brain was reported to be negative. Her vitals remained stable. Ammonia level was 51. She was given lactulose and apparently woke up back to baseline. She usually gets her medical care over at [facility]. 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 She was then transferred to [facility], admitted to telemetry and underwent neurologic and cardiac evaluation. Brain MRI was negative except for an incidental finding of a right frontal lobe meningioma. EEG showed normal awake stage 1 sleep EEG with photic stimulation. She was noted to have bradycardia on the monitor. Echocardiogram showed ejection fraction of 60% with mild left ventricular hypertrophy and mild diastolic dysfunction. She was positive for orthostasis and was given IV hydration. Ammonia level normalized post lactulose administration. Serial troponins have been negative. X-ray of bilateral knee was done and was negative for acute bony trauma. She had pancytopenia, WBC 1.9. She was seen by Dr. Nunez. Pancytopenia probably secondary to chemotherapeutic agents and leukopenia improved post administration of one dose of Neupogen. Anemia was likely secondary to chemotherapy. No iron deficiency was present. She was given one unit packed RBC blood transfusion. She underwent physical therapy. She was eventually discharged home. FINAL DIAGNOSES: 1. Transient global amnesia. 2. Pancytopenia due to chemotherapy. 3. Syncope possibly due to dehydration and bradycardia. 4. Carcinoid syndrome status post chemotherapy. 5. Acute anemia requiring blood transfusion. 6. Recurrent amnestic episodes. 7. Hypercholesterolemia. 8. Depression. 9. Acute toxic metabolic encephalopathy, resolved. 10. Hypomagnesemia. 11. Bilateral knee sprain, 12. Status post fall. DISPOSITION: The patient was discharged home. DISCHARGE MEDICATIONS: Refer to medication list. DISCHARGE INSTRUCTIONS: Follow up with PMD in a week. Cinda Alan M.D. I have been assigned to dictate discharge summary on this account and I was not involved in the patient's management. Shirin Lou N.P. DR: BRIAN JOB#: [id number] CC: NELA
--- NOTE | 2017-09-09 11:10 | Cardiology Report ---
APPROVED REPORT EXAM: Two-dimensional and M-mode echocardiogram with Doppler and color Doppler. INDICATION Syncope M-Mode DIMENSIONS IVSd1.3 (0.7-1.1cm)Left Atrium (MM)3.2 (1.6-4.0cm) LVDd3.8 (3.5-5.6cm)Aortic Root3.0 (2.0-3.7cm) PWd1.4 (0.7-1.1cm)Aortic Cusp Exc.2.0 (1.5-2.0cm) LVDs2.3 (2.5-4.0cm) PWs1.8 cm Normal left ventricular chamber size, systolic function and wall motion. Left ventricular ejection fraction estimated to be 60 %. Mild left ventricular hypertrophy. Trace pericardial effusion. Mild left atrial enlargement. Right cardiac chamber sizes are within normal limits. Mild focal aortic valve sclerosis with adequate cusp excursion. Thickened mitral valve leaflets with normal excursion. Mild mitral annulus and aortic root calcification. Pulmonic valve not well visualized. Normal tricuspid valve structure. IVC measures at 1.8 cm with physiological collapse. A color flow and spectral Doppler study was performed and revealed: No aortic insufficiency. Trace mitral regurgitation. Mitral diastolic velocities suggest reduced left ventricular relaxation c/w diastolic dysfunction (Grade I). Mild tricuspid regurgitation. Tricuspid systolic velocities suggests peak right ventricular systolic pressure of 44 mmHg, consistent with mild severe pulmonary hypertension. Trace pulmonic regurgitation present.
== END 2017-09-03 18:35 | disposition home or self-care (01) | DRG 308 ==
LOC: 2E 04:00
PROC: 30233N1 Transfusion of Nonautologous Red Blood Cells into Peripheral Vein, Percutaneous Approach (ICD-10-PCS; principal; 2017-09-03)
DX: R00.1 Bradycardia, unspecified (principal); G92 Toxic encephalopathy; D61.810 Antineoplastic chemotherapy induced pancytopenia; E34.0 Carcinoid syndrome; E86.0 Dehydration; E83.42 Hypomagnesemia; D64.81 Anemia due to antineoplastic chemotherapy; G45.4 Transient global amnesia; Z90.49 Acquired absence of other specified parts of digestive tract; I10 Essential (primary) hypertension; D32.0 Benign neoplasm of cerebral meninges; S83.92XA Sprain of unspecified site of left knee, initial encounter; W01.0XXA Fall on same level from slipping, tripping and stumbling without subsequent striking against object, initial encounter; Y92.019 Unspecified place in single-family (private) house as the place of occurrence of the external cause; Y99.8 Other external cause status; S83.91XA Sprain of unspecified site of right knee, initial encounter; F32.89 Other specified depressive episodes; E78.00 Pure hypercholesterolemia, unspecified; F41.9 Anxiety disorder, unspecified; Z87.891 Personal history of nicotine dependence
CPT/HCPCS: 36415; 70553; 71046; 80048; 80053; 80061; 81003; 82105; 82140; 82378; 82550; 82553; 82607; 82728; 82746; 83540; 83550; 83615; 83735; 84439; 84443; 84484; 85007; 85025; 85044; 85060; 85384; 85610; 85651; 85730; 86703; 86705; 86709; 86803; 86850; 86900; 86901; 86920; 87340; 93005; 93306; 93880; 95819; A9585